=== PATIENT | male | born 1960 | race African-American/Black ===

== ENCOUNTER 2016-10-15 11:48 | Inpatient (IN) | payer OTHER ==
[2016-10-15 13:19] VITALS: BMI 30.4
--- NOTE | 2016-10-15 15:29 | HP ---
CIWA Score - CIWA Score Nausea/Vomitin Muscle Tremors: 3 Anxiety: 3 Agitation: 3 Paroxysmal Sweats: 2 Orientation: 0-Oriented Tacttile Disturbances: 2-Mild Itch/Numbness/Burn Auditory Disturbances: 2-Mild Harshness/Frighten Visual Disturbances: 2-Mild Sensitivity Headache: 2-Mild CIWA-Ar Total Score: 22 Admission ROS BHS - HPI Chief Complaint: i need help to stop drinking alcohol and cocaine Allergies/Adverse Reactions: Allergies Allergy/AdvReac Type Severity Reaction Status Date / Time No Known Allergies Allergy Verified 10/15/16 15:03 History of Present Illness: this 56 years old male with alcohol and cocaine dependence,withdrawal symptom, last detox 01/25/16 to 01/29/16 syncope alcohol related htn,type 2 dm,hypercholesterolemia hiv since 1993 old cva in 2013 nicotine dependence longest period of sobriety 6 years Exam Limitations: No Limitations - Ebola screening Have you traveled outside of the country in the last 21 days: No Have you had contact with anyone from an Ebola affected area: No Have you been sick,other than usual withdrawal symptoms: No - Review of Systems Constitutional: Loss of Appetite, Malaise, Night Sweats, Changes in sleep, Weakness EENT: reports: Nose Congestion Respiratory: reports: No Symptoms reported Cardiac: reports: Palpitations GI: reports: Nausea, Vomiting, Indigestion, Abdominal cramping : reports: No Symptoms Reported Musculoskeletal: reports: Back Pain, Muscle Pain Integumentary: reports: Dryness Neuro: reports: Tremors Endocrine: reports: No Symptoms Reported Hematology: reports: No Symptoms Reported (hiv) Psychiatric: reports: Depressed Patient History - Patient Medical History Hx Anemia: No Hx Asthma: No Hx Chronic Obstructive Pulmonary Disease (COPD): No Hx Cancer: No Hx Cardiac Disorders: No Hx Congestive Heart Failure: No Hx Hypertension: Yes (ON MEDS.) Hx Hypercholesterolemia: Yes (on meds) Hx Pacemaker: No HX Cerebrovascular Accident: No Hx Seizures: No Hx Dementia: No Hx Diabetes: Yes (ON METFORMIN) Hx Gastrointestinal Disorders: No Hx Liver Disease: No Hx Genitourinary Disorders: No Hx Sexually Transmitted Disorders: No Hx Renal Disease (ESRD): No Hx Thyroid Disease: No Hx Human Immunodeficiency Virus (HIV): Yes (since 1993, on atripla) Hx Hepatitis C: No Hx Depression: Yes (NO CURRENT MEDS) Hx Suicide Attempt: No (DENIES) Hx Bipolar Disorder: No Hx Schizophrenia: No Other Medical History: no suicidal,no homicidal - Patient Surgical History Past Surgical History: No Hx Neurologic Surgery: No Hx Cataract Extraction: No Hx Cardiac Surgery: No Hx Lung Surgery: No Hx Breast Surgery: No Hx Breast Biopsy: No Hx Abdominal Surgery: No Hx Appendectomy: No Hx Cholecystectomy: No Hx Genitourinary Surgery: No Hx Section: No Hx Orthopedic Surgery: No Anesthesia Reaction: No - PPD History Previous Implant?: Yes Documented Results: Negative w/o proof Date: 07/26/15 Results: 0 MM PPD to be Administered?: Yes - Smoking Cessation Smoking history: Current every day smoker Have you smoked in the past 12 months: Yes Aproximately how many cigarettes per day: 40 Cigars Per Day: 0 Hx Chewing Tobacco Use: No Initiated information on smoking cessation: Yes 'Breaking Loose' booklet given: 10/15/16 - Substance & Tx. History Hx Alcohol Use: Yes Hx Substance Use: Yes Substance Use Type: Alcohol, Cocaine Hx Substance Use Treatment: Yes ([facility] 01/25/16 to 01/29/16) Family Disease History - Family Disease History Family Disease History: Other: Father (dsa,), Mother (alcoholic, ), Brother (alcohol) Admission Physical Exam S - Vital Signs Vital Signs: Vital Signs - 24 hr 10/15/16 13:00 Temperature 97 F L Pulse Rate 108 H Respiratory 18 Rate Blood Pressure 119/79 - Physical General Appearance: Yes: Moderate Distress, Tremorous, Irritable, Sweating, Anxious HEENTM: Yes: Normal ENT Inspection, Pharynx Normal, Nasal Congestion, Rhinorrhea Respiratory: Yes: Lungs Clear, Normal Breath Sounds, No Respiratory Distress Neck: Yes: Within Normal Limits, Supple, Trachea in good position Breast: Yes: Within Normal Limits Cardiology: Yes: Tachycardia Abdominal: Yes: Within Normal Limits, Normal Bowel Sounds, Non Tender, Flat, Soft Genitourinary: Yes: Within Normal Limits Back: Yes: Muscle Spasm Musculoskeletal: Yes: Back pain, Muscle Pain Extremities: Yes: Within Normal Limits, Normal Range of Motion, Tremors Neurological: Yes: infection control rn II-XII NML intact, Fully Oriented, Alert, Motor Strength 5/5 Integumentary: Yes: Dry Lymphatic: Yes: Within Normal Limits - Diagnostic (1) Alcohol dependence with uncomplicated withdrawal Current Visit: No Status: Acute (2) Cocaine dependence Current Visit: No Status: Acute Qualifiers: Substance use status: uncomplicated Qualified Code(s): F14.20 - Cocaine dependence, uncomplicated (3) Nicotine dependence Current Visit: No Status: Acute Qualifiers: Nicotine product type: cigarettes Substance use status: uncomplicated Qualified Code(s): F17.210 - Nicotine dependence, cigarettes, uncomplicated (4) Weight decreased Current Visit: No Status: Acute (5) Acquired immune deficiency syndrome (AIDS) Current Visit: No Status: Chronic (6) DM (diabetes mellitus), type 2 Current Visit: No Status: Chronic Qualifiers: Diabetes mellitus complication status: without complication Diabetes mellitus retirement insulin use: without retirement use Qualified Code(s): E11.9 - Type 2 diabetes mellitus without complications (7) Depression Current Visit: No Status: Chronic (8) Essential hypertension Current Visit: No Status: Chronic (9) Hypercholesterolemia Current Visit: No Status: Chronic Cleared for Admission S - Detox or Rehab [facility] Level of Care: Medically Managed Detox Regimen/Protocol: Librium [facility] Breath Alcohol Content Breath Alcohol Content: 0.015 Urine Drug Screen - Results Drug Screen Negative: No Urine Drug Screen Results: GABRIELA-Cocaine
[2016-10-15] MEDS ORDERED: MAGNESIUM CITRATE 300 ML BOTTLE PO PRN (15:42)
[2016-10-15] MEDS ORDERED: MAGNESIUM HYDROX 2400MG/30ML ORAL SUSPENSION 30 ML CUP PO PRN (15:42)
[2016-10-15] MEDS ORDERED: MENTHOL/PHENOL 1 EACH UD MM PRN (15:42)
[2016-10-15] MEDS ORDERED: chlordiazePOXIDE HCL 25 MG CAPSULE PO PRN (15:42)
[2016-10-15] MEDS ORDERED: hydrOXYzine PAMOATE 50 MG CAPSULE (FP) PO PRN (15:42)
[2016-10-15] MEDS ORDERED: IBUPROFEN 400 MG TABLET (FP) PO PRN (15:42)
[2016-10-15] MEDS ORDERED: MAG HYDROX/AL HYDROX/SIMETH 30 ML UNIT-DOSE CUP PO PRN (15:42)
[2016-10-15] MEDS ORDERED: LOPERAMIDE HCL 2 MG CAPSULE PO PRN (15:42)
[2016-10-15] MEDS ORDERED: ACETAMINOPHEN 325 MG TABLET (FP) PO PRN (15:42)
[2016-10-15] MEDS ORDERED: P-EPHED 60MG/TRIPROLIDI 2.5MG TABLET PO PRN (15:42)
[2016-10-15] MEDS ORDERED: guaiFENesin/D-METHORPHAN HB 10 ML UNIT-DOSE CUPS PO PRN (15:42)
[2016-10-15] MEDS ORDERED: chlordiazePOXIDE HCL 25 MG CAPSULE PO ONE (17:00)
[2016-10-15] MEDS ORDERED: INSULIN (NOVOLOG) ASPART 100 UNITS/ML 10ML VIAL ONE (17:39)
[2016-10-15] MEDS: metFORMIN HCL 500 MG TABLET (FP) PO SCH (17:48)
[2016-10-15] MEDS: INSULIN (NOVOLOG) ASPART 100 UNITS/ML 10ML VIAL SQ SCH ×2 (17:49→22:13)
[2016-10-15] MEDS: chlordiazePOXIDE HCL 25 MG CAPSULE PO SCH ×2 (17:55→22:11)
[2016-10-15] MEDS: ATORVASTATIN CA 40 MG TABLET (FP) PO SCH (22:11)
[2016-10-15] MEDS: THIAMINE HCL 100 MG TABLET (FP) PO SCH (22:11)
[2016-10-15] MEDS: EFAVIRENZ 600 MG TABLET PO SCH (22:11)
[2016-10-15] MEDS: diphenhydrAMINE HCL 50 MG CAPSULE PO PRN (22:11)
[2016-10-15] MEDS: EMTRICITABINE 200MG/TENOFOVIR 300MG PO SCH (22:11)
[2016-10-16] MEDS: chlordiazePOXIDE HCL 25 MG CAPSULE PO SCH ×4 (05:18→22:22)
[2016-10-16] MEDS: metFORMIN HCL 500 MG TABLET (FP) PO SCH ×2 (07:23→17:25)
[2016-10-16] MEDS: INSULIN (NOVOLOG) ASPART 100 UNITS/ML 10ML VIAL SQ SCH ×4 (07:53→21:50)
[2016-10-16] MEDS: PRENATAL VITAMINS W/ FOLIC ACID TABLET (FP) PO SCH (10:08)
[2016-10-16] MEDS: ASPIRIN 81 MG CHEWABLE TABLETS PO SCH (10:08)
[2016-10-16] MEDS: HYDROCHLOROTHIAZIDE 25 MG TABLET (FP) PO SCH (10:09)
[2016-10-16] MEDS: LISINOPRIL 20 MG TABLET (FP) PO SCH (10:10)
[2016-10-16 10:13] LABS: MCH 28.3 pg (25.7-33.7); MCHC 32.4 g/dl (32.0-35.9); MEAN CELL VOLUME 87.1 fl (80-96); MEAN PLT VOLUME 9.7 fl (7.5-11.1); PLATELET COUNT 262 K/MM3 (134-434); RDW 13.2 % (11.9-15.9); WHITE BLOOD COUNT 7.1 K/mm3 (4.0-10.0)
--- NOTE | 2016-10-16 10:20 | PN ---
S CIWA - CIWA Score Nausea/Vomitin-No Nausea/No Vomiting Muscle Tremors: 4-Moderate,w/Arms Extend Anxiety: 4-Mod. Anxious/Guarded Agitation: 3 Paroxysmal Sweats: 3 Orientation: 0-Oriented Tacttile Disturbances: 0-None Auditory Disturbances: 0-None Visual Disturbances: 0-None Headache: 0-None Present CIWA-Ar Total Score: 14 BHS Progress Note (SOAP) Subjective: sweats agitation interrupted sleep Objective: 10/16/16 10:19 Vital Signs Temperature 98.1 F 10/16/16 06:46 Pulse Rate 73 10/16/16 06:46 Respiratory Rate 18 10/16/16 06:46 Blood Pressure 110/74 10/16/16 06:46 O2 Sat by Pulse Oximetry (%) Laboratory Tests 10/15/16 10/15/16 10/15/16 15:26 17:35 22:07 POC Glucometer 304 263 143 10/16/16 07:15 POC Glucometer 136 pending labs awake/alert ambulating no acute distress Assessment: 10/16/16 10:20 withdrawal sx Plan: continue detox increase fluids labs pending
[2016-10-16 10:33] LABS: ALBUMIN 4.1 g/dl (3.4-5.0); CALCIUM 9.2 mg/dL (8.5-10.1); CREATININE 1.5 mg/dL (0.7-1.3)
[2016-10-16 10:36] LABS: BILIRUBIN,TOTAL 0.3 mg/dL (0.2-1.0); TOT PROT 8.2 g/dl (6.4-8.2)
[2016-10-16] MEDS ORDERED: INSULIN (NOVOLOG) ASPART 100 UNITS/ML 10ML VIAL ONE ×2 (11:42→21:50)
--- NOTE | 2016-10-16 15:15 | CONSULT ---
[facility] Psychiatric Consult - Data Date of interview: 10/16/16 Admission source: [facility] Identifying data: Another admission to [facility] for this 56 y/o AA male seeking detox treatment on for alcohol and cocaine dependence.Patient is ,a father of two,domiciled (lives with ),unemployed and supported on SSI benefits. Substance Abuse History: - Smoking Cessation. Smoking history: Current every day smoker. Have you smoked in the past 12 months: Yes. Aproximately how many cigarettes per day: 40. Cigars Per Day: 0. Hx Chewing Tobacco Use: No. Initiated information on smoking cessation: Yes. 'Breaking Loose' booklet given : 10/15/16. - Substance & Tx. History. Hx Alcohol Use: Yes. Hx Substance Use : Yes. Substance Use Type: Alcohol, Cocaine. Hx Substance Use Treatment: Yes ( [facility] 01/25/16 to 01/29/16). Confirmed by patient. Medical History: HIV infection since 1990 (on ART agents),obesity,diabetes mellitus type II,hypertension and dyslipidemia. Psychiatric History: Patient denies. Physical/Sexual Abuse/Trauma History: Patient denies. Additional Comment: Urine Drug Screen Results: GABRIELA-Cocaine.Noted. Mental Status Exam - Mental Status Exam Alert and Oriented to: Time, Place, Person Cognitive Function: Grossly Intact Patient Appearance: Well Groomed Mood: Withdrawn Affect: Appropriate, Normal Range Patient Behavior: Fatigued, Cooperative Speech Pattern: Clear Voice Loudness: Normal Thought Process: Goal Oriented Thought Disorder: Not Present Hallucinations: Denies Suicidal Ideation: Denies Homicidal Ideation: Denies Insight/Judgement: Poor Sleep: Poorly, Difficulty falling asleep Appetite: Good Muscle strength/Tone: Normal Gait/Station: Normal Psychiatric Findings - Problem List ([place] 1, 2,3) (1) Alcohol dependence with uncomplicated withdrawal Current Visit: Yes Status: Acute (2) Cocaine dependence Current Visit: Yes Status: Acute Qualifiers: Substance use status: uncomplicated Qualified Code(s): F14.20 - Cocaine dependence, uncomplicated (3) Nicotine dependence Current Visit: Yes Status: Acute Qualifiers: Nicotine product type: cigarettes Substance use status: uncomplicated Qualified Code(s): F17.210 - Nicotine dependence, cigarettes, uncomplicated (4) Weight decreased Current Visit: Yes Status: Chronic (5) Acquired immune deficiency syndrome (AIDS) Current Visit: Yes Status: Chronic (6) DM (diabetes mellitus), type 2 Current Visit: Yes Status: Chronic Qualifiers: Diabetes mellitus complication status: without complication Diabetes mellitus group home insulin use: without group home use Qualified Code(s): E11.9 - Type 2 diabetes mellitus without complications (7) Essential hypertension Current Visit: Yes Status: Chronic (8) Hypercholesterolemia Current Visit: Yes Status: Chronic (9) Insomnia Current Visit: Yes Status: Acute - Initial Treatment Plan Initial Treatment Plan: Psychoeducation.Detoxification.Insomnia is addressed with benadryl 50 mg po hs.Side effects/benedryl discussed.Patient agrees with careplan.Observation.
[2016-10-16 15:24] LABS: URINE APPEARANCE CLEAR; URINE BILIRUBIN NEGATIVE (NEGATIVE); URINE BLOOD NEGATIVE (NEGATIVE); URINE COLOR LTYELLOW; URINE GLUCOSE (UA) 3+ (NEGATIVE); URINE KETONE NEGATIVE (NEGATIVE); URINE LEUK ESTERASE NEGATIVE (NEGATIVE); URINE NITRITE NEGATIVE (NEGATIVE); URINE PROTEIN NEGATIVE (NEGATIVE); URINE UROBILINOGEN NEGATIVE E.U./dl (0.2-1.0)
[2016-10-16] MEDS: diphenhydrAMINE HCL 50 MG CAPSULE PO PRN (22:22)
[2016-10-16] MEDS: EFAVIRENZ 600 MG TABLET PO SCH (22:23)
[2016-10-16] MEDS: ATORVASTATIN CA 40 MG TABLET (FP) PO SCH (22:23)
[2016-10-16] MEDS: THIAMINE HCL 100 MG TABLET (FP) PO SCH (22:23)
[2016-10-16] MEDS: EMTRICITABINE 200MG/TENOFOVIR 300MG PO SCH (22:23)
[2016-10-17] MEDS: metFORMIN HCL 500 MG TABLET (FP) PO SCH ×3 (07:43→17:09)
[2016-10-17] MEDS: chlordiazePOXIDE HCL 25 MG CAPSULE PO SCH ×2 (07:43→11:15)
[2016-10-17] MEDS: INSULIN (NOVOLOG) ASPART 100 UNITS/ML 10ML VIAL SQ SCH ×4 (07:52→22:36)
--- NOTE | 2016-10-17 09:03 | PN ---
[facility] CIWA - CIWA Score Nausea/Vomitin-No Nausea/No Vomiting Muscle Tremors: 3 Anxiety: 3 Agitation: 3 Paroxysmal Sweats: 2 Orientation: 0-Oriented Tacttile Disturbances: 0-None Auditory Disturbances: 0-None Visual Disturbances: 0-None Headache: 0-None Present CIWA-Ar Total Score: 11 S Progress Note (SOAP) Subjective: sweats interrupted sleep agitation Objective: 10/17/16 09:02 Vital Signs Temperature 97.7 F 10/17/16 06:00 Pulse Rate 81 10/17/16 06:00 Respiratory Rate 18 10/17/16 06:00 Blood Pressure 97/55 10/17/16 06:00 O2 Sat by Pulse Oximetry (%) Laboratory Tests 10/15/16 10/15/16 10/15/16 15:26 17:35 22:07 WBC RBC Hgb Hct MCV MCHC RDW Plt Count MPV Sodium Potassium Chloride Carbon Dioxide Anion Gap BUN Creatinine Creat Clearance w eGFR POC Glucometer 304 263 143 Random Glucose Calcium Total Bilirubin AST ALT Alkaline Phosphatase Total Protein Albumin Urine Color Urine Appearance Urine pH Ur Specific [place] Urine Protein Urine Glucose (UA) Urine Ketones Urine Blood Urine Nitrite Urine Bilirubin Urine Urobilinogen Ur Leukocyte Esterase RPR Titer 10/16/16 10/16/16 10/16/16 06:00 06:00 06:00 WBC 7.1 RBC 5.61 H Hgb 15.9 Hct 48.9 MCV 87.1 MCHC 32.4 RDW 13.2 Plt Count 262 MPV 9.7 Sodium 137 Potassium 4.1 Chloride 98 Carbon Dioxide 24 Anion Gap 15 BUN 18 D Creatinine 1.5 H Creat Clearance w eGFR 48.77 POC Glucometer Random Glucose 326 H* Calcium 9.2 Total Bilirubin 0.3 D AST 12 L D ALT 25 Alkaline Phosphatase 118 H Total Protein 8.2 Albumin 4.1 Urine Color Urine Appearance Urine pH Ur Specific [place] Urine Protein Urine Glucose (UA) Urine Ketones Urine Blood Urine Nitrite Urine Bilirubin Urine Urobilinogen Ur Leukocyte Esterase RPR Titer Nonreactive 10/16/16 10/16/16 10/16/16 07:15 11:20 11:33 WBC RBC Hgb Hct MCV MCHC RDW Plt Count MPV Sodium Potassium Chloride Carbon Dioxide Anion Gap BUN Creatinine Creat Clearance w eGFR POC Glucometer 136 231 Random Glucose Calcium Total Bilirubin AST ALT Alkaline Phosphatase Total Protein Albumin Urine Color Ltyellow Urine Appearance Clear Urine pH 6.0 Ur Specific [place] 1.012 Urine Protein Negative Urine Glucose (UA) 3+ H Urine Ketones Negative Urine Blood Negative Urine Nitrite Negative Urine Bilirubin Negative Urine Urobilinogen Negative Ur Leukocyte Esterase Negative RPR Titer 10/16/16 10/16/16 10/17/16 16:49 21:30 07:38 WBC RBC Hgb Hct MCV MCHC RDW Plt Count MPV Sodium Potassium Chloride Carbon Dioxide Anion Gap BUN Creatinine Creat Clearance w eGFR POC Glucometer 120 237 137 Random Glucose Calcium Total Bilirubin AST ALT Alkaline Phosphatase Total Protein Albumin Urine Color Urine Appearance Urine pH Ur Specific [place] Urine Protein Urine Glucose (UA) Urine Ketones Urine Blood Urine Nitrite Urine Bilirubin Urine Urobilinogen Ur Leukocyte Esterase RPR Titer awake/alert ambulating no acute distress Assessment: 10/17/16 09:02 withdrawal sx Plan: continue detox increase fluids
[2016-10-17] MEDS ORDERED: ASPIRIN COATED 81 MG TABLET.EC ONE (09:54)
[2016-10-17] MEDS: PRENATAL VITAMINS W/ FOLIC ACID TABLET (FP) PO SCH (11:15)
[2016-10-17] MEDS: HYDROCHLOROTHIAZIDE 25 MG TABLET (FP) PO SCH (11:15)
[2016-10-17] MEDS: LISINOPRIL 20 MG TABLET (FP) PO SCH (11:15)
[2016-10-17] MEDS: ASPIRIN 81 MG CHEWABLE TABLETS PO SCH (11:17)
[2016-10-17] MEDS ORDERED: INSULIN (NOVOLOG) ASPART 100 UNITS/ML 10ML VIAL ONE ×2 (11:37→16:54)
--- NOTE | 2016-10-17 11:58 | EKG ---
Test Reason : Blood Pressure : / mmHG Vent. Rate : 092 BPM Atrial Rate : 092 BPM P-R Int : 146 ms QRS Dur : 090 ms QT Int : 378 ms P-R-T Axes : 031 -53 022 degrees QTc Int : 467 ms NORMAL SINUS RHYTHM LEFT ANTERIOR FASCICULAR BLOCK SEPTAL INFARCT , AGE UNDETERMINED ABNORMAL ECG NO PREVIOUS ECGS AVAILABLE Confirmed by GERMAN HERNÁNDEZ MD ([id number]) on 10/17/2016 11:58:24 AM Referred By: Confirmed By:GERMAN HERNÁNDEZ MD
[2016-10-17] MEDS: chlordiazePOXIDE 5 MG CAPSULE PO SCH ×2 (17:09→23:00)
[2016-10-17] MEDS: diphenhydrAMINE HCL 50 MG CAPSULE PO PRN (23:00)
[2016-10-17] MEDS: THIAMINE HCL 100 MG TABLET (FP) PO SCH (23:00)
[2016-10-17] MEDS: EFAVIRENZ 600 MG TABLET PO SCH (23:00)
[2016-10-17] MEDS: ATORVASTATIN CA 40 MG TABLET (FP) PO SCH (23:00)
[2016-10-17] MEDS: EMTRICITABINE 200MG/TENOFOVIR 300MG PO SCH (23:02)
[2016-10-18] MEDS: chlordiazePOXIDE 5 MG CAPSULE PO SCH ×2 (05:31→10:07)
[2016-10-18] MEDS: INSULIN (NOVOLOG) ASPART 100 UNITS/ML 10ML VIAL SQ SCH ×3 (07:52→18:04)
[2016-10-18] MEDS: metFORMIN HCL 500 MG TABLET (FP) PO SCH ×2 (07:53→18:04)
[2016-10-18] MEDS: ASPIRIN 81 MG CHEWABLE TABLETS PO SCH (10:08)
[2016-10-18] MEDS: LISINOPRIL 20 MG TABLET (FP) PO SCH (10:08)
[2016-10-18] MEDS: PRENATAL VITAMINS W/ FOLIC ACID TABLET (FP) PO SCH (10:08)
[2016-10-18] MEDS: HYDROCHLOROTHIAZIDE 25 MG TABLET (FP) PO SCH (10:08)
--- NOTE | 2016-10-18 11:58 | PN ---
S Progress Note (SOAP) Subjective: ALERT,IRRITABLE,INTERRUPTED SLEEP Objective: 10/18/16 11:57 Vital Signs Temperature 98.2 F 10/18/16 09:58 Pulse Rate 90 10/18/16 09:58 Respiratory Rate 18 10/18/16 09:58 Blood Pressure 109/79 10/18/16 09:58 O2 Sat by Pulse Oximetry (%) BGM 142 Assessment: 10/18/16 11:57 WITHDRAWAL SYMPTOM Plan: CONTINUE DETOX,DISCHARGE IN AM
[2016-10-18] MEDS ORDERED: INSULIN (NOVOLOG) ASPART 100 UNITS/ML 10ML VIAL ONE (12:16)
[2016-10-18] MEDS: chlordiazePOXIDE HCL 10 MG CAPSULE PO SCH ×2 (18:05→22:07)
[2016-10-18] MEDS: THIAMINE HCL 100 MG TABLET (FP) PO SCH (22:07)
[2016-10-18] MEDS: EFAVIRENZ 600 MG TABLET PO SCH (22:08)
[2016-10-18] MEDS: ATORVASTATIN CA 40 MG TABLET (FP) PO SCH (22:08)
[2016-10-18] MEDS: diphenhydrAMINE HCL 50 MG CAPSULE PO PRN (22:08)
[2016-10-19] MEDS: INSULIN (NOVOLOG) ASPART 100 UNITS/ML 10ML VIAL SQ SCH ×2 (00:04→08:12)
[2016-10-19] MEDS: EMTRICITABINE 200MG/TENOFOVIR 300MG PO SCH (00:05)
[2016-10-19] MEDS: chlordiazePOXIDE HCL 10 MG CAPSULE PO SCH (05:04)
[2016-10-19 06:08] VITALS: BP 99/74; PULSE 105; TEMP 96.8
--- NOTE | 2016-10-19 08:06 | PN ---
S Progress Note (SOAP) Subjective: ALERT,NO COMPLAINT Objective: 10/19/16 08:05 Vital Signs Temperature 96.8 F L 10/19/16 06:06 Pulse Rate 105 H 10/19/16 06:06 Respiratory Rate 20 10/19/16 06:06 Blood Pressure 99/74 10/19/16 06:06 O2 Sat by Pulse Oximetry (%) Assessment: 10/19/16 08:05 DETOX COMPLETED,NO WITHDRAWAL SYMPTOM Plan: DISCHARGE TO,FOLLOW UP WITH AFTER CARE PROGRAM ARRANGEMENT
[2016-10-19] MEDS: metFORMIN HCL 500 MG TABLET (FP) PO SCH (08:12)
--- NOTE | 2016-10-19 08:15 | DS ---
[facility] Detox Discharge Summary Admission Date: 10/15/16 Discharge Date: 10/19/16 - History Present History: Alcohol Dependence, Cocaine Dependence Pertinent Past History: AIDS ESSENTIAL HYPERTENSION HYPERCHOLESTEROLEMIA WEIGHT DECREASED DEPRESSION TYPE 2 DM - Physical Exam Results Vital Signs: Vital Signs Temperature 96.8 F L 10/19/16 06:06 Pulse Rate 105 H 10/19/16 06:06 Respiratory Rate 20 10/19/16 06:06 Blood Pressure 99/74 10/19/16 06:06 O2 Sat by Pulse Oximetry (%) Pertinent Admission Physical Exam Findings: FOLLOW UP WITH AFTER CARE PROGRAM ARRANGEMENT AND PMD FOR MEDICAL PROBLEM - Treatment Hospital Course: Detox Protocol Followed, Detoxed Safely, Responded well, Discharged Condition Good Patient has Accepted a Rehab Referral to: DECLINED - Medication Discharge Medications: Ambulatory Orders Aspirin [ASA -] 81 mg PO DAILY 12/17/13 Atorvastatin Calcium 40 mg PO HS 12/17/13 Efavirenz/Emtricitab/Tenofovir [Atripla Tablet -] 1 tab PO DAILY #30 tab Metformin HCl [Glucophage] 1,000 mg PO BID #60 tablet 07/29/15 Lisinopril/Hydrochlorothiazide [Lisinopril-Hctz 20-25 mg Tab] 1 each PO DAILY - Diagnosis (1) Alcohol dependence with uncomplicated withdrawal Current Visit: Yes Status: Acute (2) Cocaine dependence Current Visit: Yes Status: Acute Qualifiers: Substance use status: uncomplicated Qualified Code(s): F14.20 - Cocaine dependence, uncomplicated (3) Nicotine dependence Current Visit: Yes Status: Acute Qualifiers: Nicotine product type: cigarettes Substance use status: uncomplicated Qualified Code(s): F17.210 - Nicotine dependence, cigarettes, uncomplicated (4) Weight decreased Current Visit: Yes Status: Chronic (5) Acquired immune deficiency syndrome (AIDS) Current Visit: Yes Status: Chronic (6) DM (diabetes mellitus), type 2 Current Visit: Yes Status: Chronic Qualifiers: Diabetes mellitus complication status: without complication Diabetes mellitus prison insulin use: without music grapher use Qualified Code(s): E11.9 - Type 2 diabetes mellitus without complications (7) Depression Current Visit: No Status: Chronic (8) Essential hypertension Current Visit: Yes Status: Chronic (9) Hypercholesterolemia Current Visit: Yes Status: Chronic - AMA Did Patient Leave Against Medical Advice: No
--- NOTE | 2016-10-19 08:23 | PN ---
S Progress Note (SOAP) Subjective: ALERT,NO COMPLAINT Objective: 10/19/16 08:22 Vital Signs Temperature 96.8 F L 10/19/16 06:06 Pulse Rate 105 H 10/19/16 06:06 Respiratory Rate 20 10/19/16 06:06 Blood Pressure 99/74 10/19/16 06:06 O2 Sat by Pulse Oximetry (%) Assessment: 10/19/16 08:22 DETOX COMPLETED,NO WITHDRAWAL SYMPTOM Plan: DISCHARGE TODAY,FOLLOW UP WITH AFTER CARE PROGRAM ARRANGEMENT
--- NOTE | 2016-10-19 08:25 | PN ---
S Progress Note Note: PLEASE DISREGARD THE NOTE ON 03.10,BELONGS TO OTHER PATIENT
== END 2016-10-19 09:28 | disposition home or self-care (01) | DRG 897 ==
LOC: YASAS 11:48 → Y6N 15:53
PROVIDERS: ADMIT Internal Medicine Addiction Medicine; ATTEND Internal Medicine Addiction Medicine
PROC: HZ2ZZZZ Detoxification Services for Substance Abuse Treatment (ICD-10-PCS; principal; 2016-10-15)
DX: F19.230 Other psychoactive substance dependence with withdrawal, uncomplicated (principal); F14.20 Cocaine dependence, uncomplicated; F10.230 Alcohol dependence with withdrawal, uncomplicated; F17.210 Nicotine dependence, cigarettes, uncomplicated; F32.9 Major depressive disorder, single episode, unspecified; E11.9 Type 2 diabetes mellitus without complications; E78.00 Pure hypercholesterolemia, unspecified; E66.9 Obesity, unspecified; Z68.30 Body mass index [BMI] 30.0-30.9, adult; I10 Essential (primary) hypertension; R00.0 Tachycardia, unspecified; G47.00 Insomnia, unspecified; Z87.898 Personal history of other specified conditions; Z86.73 Personal history of transient ischemic attack (TIA), and cerebral infarction without residual deficits
CPT/HCPCS: 36415; 80053; 81003; 85027; 86593; 93005; 93010

== ENCOUNTER 2017-03-14 09:54 | Inpatient (IN) | payer OTHER ==
[2017-03-14 10:06] VITALS: BMI 29.5
--- NOTE | 2017-03-14 10:48 | HP ---
CIWA Score - CIWA Score Nausea/Vomitin Muscle Tremors: 2 Anxiety: 1-Mildly Anxious Agitation: 1-Slight > Activity Paroxysmal Sweats: 1-Minimal Palms Moist Orientation: 1-Uncertain about Date Tacttile Disturbances: 1-Very Mild Itch/Numbness Auditory Disturbances: 2-Mild Harshness/Frighten Visual Disturbances: 2-Mild Sensitivity Headache: 2-Mild CIWA-Ar Total Score: 15 Admission ROS BHS - HPI Chief Complaint: I'm tired, I need to stop using Allergies/Adverse Reactions: Allergies Allergy/AdvReac Type Severity Reaction Status Date / Time No Known Allergies Allergy Verified 03/14/17 10:30 History of Present Illness: 56 yo gentleman here for detox from alcohol - previously here in september, Exam Limitations: Clinical Condition - Ebola screening Have you traveled outside of the country in the last 21 days: No Have you had contact with anyone from an Ebola affected area: No Have you been sick,other than usual withdrawal symptoms: No Do you have a fever: No Patient History - Patient Medical History Hx Anemia: No Hx Asthma: No Hx Chronic Obstructive Pulmonary Disease (COPD): No Hx Cancer: No Hx Cardiac Disorders: No Hx Congestive Heart Failure: No Hx Hypertension: Yes (ON MEDS.) Hx Hypercholesterolemia: Yes (on meds) Hx Pacemaker: No HX Cerebrovascular Accident: No Hx Seizures: No Hx Dementia: No Hx Diabetes: Yes (ON METFORMIN) Hx Gastrointestinal Disorders: No Hx Liver Disease: No Hx Genitourinary Disorders: No Hx Sexually Transmitted Disorders: No Hx Renal Disease (ESRD): No Hx Thyroid Disease: No Hx Human Immunodeficiency Virus (HIV): Yes (since 1993,cd4 count in ?500s, undetectable ([place])) Hx Hepatitis C: No Hx Depression: Yes (NO CURRENT MEDS) Hx Suicide Attempt: No (DENIES) Hx Bipolar Disorder: No Hx Schizophrenia: No - Patient Surgical History Past Surgical History: No Hx Neurologic Surgery: No Hx Cataract Extraction: No Hx Cardiac Surgery: No Hx Lung Surgery: No Hx Breast Surgery: No Hx Breast Biopsy: No Hx Abdominal Surgery: No Hx Appendectomy: No Hx Cholecystectomy: No Hx Genitourinary Surgery: No Hx Section: No Hx Orthopedic Surgery: No Anesthesia Reaction: No - PPD History Previous Implant?: Yes Documented Results: Negative w/o proof Date: 10/17/16 Results: 0 MM PPD to be Administered?: No - Reproductive History Patient is a Female of Child Bearing Age (11 -55 yrs old): No (male) - Smoking Cessation Smoking history: Current every day smoker Have you smoked in the past 12 months: Yes Aproximately how many cigarettes per day: 40 Cigars Per Day: 0 Hx Chewing Tobacco Use: No Initiated information on smoking cessation: Yes 'Breaking Loose' booklet given: 03/14/17 (give on floor) - Substance & Tx. History Hx Alcohol Use: Yes Hx Substance Use: Yes Substance Use Type: Alcohol, Cocaine Hx Substance Use Treatment: Yes (detox, rehab) - Substances Abused Alcohol Route: Oral Frequency: 3-6 times per week Amount used: 1 pint Age of first use: 14 Date of Last Use: 03/13/17 Cocaine Route: Smoking Frequency: 3-6 times per week Amount used: $300 Age of first use: 23 Date of Last Use: 03/13/17 Family Disease History - Family Disease History Family Disease History: [place]: Father (hx drugs,), Mother (alcoholic, ), Other: Father, Mother, Brother (three living, in recovery alcohol), Sister (two living, one in recovery), Son (one son), Daughter (one daughter) Admission Physical Exam S - Vital Signs Vital Signs: Vital Signs - 24 hr 03/14/17 09:58 Temperature 98.3 F Pulse Rate 97 H Respiratory 18 Rate Blood Pressure 150/110 - Physical General Appearance: Yes: Nourished, Appropriately Dressed, Mild Distress HEENTM: Yes: Hearing grossly Normal, Normocephalic, Normal Voice, Pharynx Normal Respiratory: Yes: Normal Breath Sounds, No Respiratory Distress Neck: Yes: No masses,lesions,Nodules, Supple, Trachea in good position Breast: Yes: Breast Exam Deferred Cardiology: Yes: Regular Rhythm, Regular Rate Abdominal: Yes: Soft, Protuberent Genitourinary: Yes: Frequency Back: Yes: Normal Inspection Musculoskeletal: Yes: full range of Motion, Gait Steady Extremities: Yes: Normal Inspection, Normal Range of Motion Neurological: Yes: Fully Oriented, Alert, Motor Strength 5/5, Normal Mood/Affect , Normal Response Integumentary: Yes: Normal Color, Dry, Warm Lymphatic: Yes: Within Normal Limits - Addiitonal Findings: BGM = 302 - Diagnostic (1) Alcohol dependence with uncomplicated withdrawal Current Visit: Yes Status: Chronic (2) Cocaine dependence Current Visit: Yes Status: Chronic Qualifiers: Substance use status: uncomplicated Qualified Code(s): F14.20 - Cocaine dependence, uncomplicated (3) Nicotine dependence Current Visit: Yes Status: Chronic Qualifiers: Nicotine product type: cigarettes Substance use status: uncomplicated Qualified Code(s): F17.210 - Nicotine dependence, cigarettes, uncomplicated (4) DM (diabetes mellitus), type 2 Current Visit: Yes Status: Chronic Qualifiers: Diabetes mellitus complication status: without complication Diabetes mellitus intermediate school teacher insulin use: without intermediate school teacher use Qualified Code(s): E11.9 - Type 2 diabetes mellitus without complications (5) Essential hypertension Current Visit: Yes Status: Chronic (6) Hypercholesterolemia Current Visit: Yes Status: Chronic (7) HIV (human immunodeficiency virus infection) Current Visit: Yes Status: Chronic Cleared for Admission S - Detox or Rehab [facility] Level of Care: Medically Managed Detox Regimen/Protocol: Librium S Breath Alcohol Content Breath Alcohol Content: 0 Urine Drug Screen - Results Drug Screen Negative: No Urine Drug Screen Results: GABRIELA-Cocaine
[2017-03-14] MEDS ORDERED: MENTHOL/PHENOL 1 EACH UD MM PRN (10:50)
[2017-03-14] MEDS ORDERED: LOPERAMIDE HCL 2 MG CAPSULE PO PRN (10:50)
[2017-03-14] MEDS ORDERED: P-EPHED 60MG/TRIPROLIDI 2.5MG TABLET PO PRN (10:50)
[2017-03-14] MEDS ORDERED: guaiFENesin/D-METHORPHAN HB 10 ML UNIT-DOSE CUPS PO PRN (10:50)
[2017-03-14] MEDS ORDERED: MAG HYDROX/AL HYDROX/SIMETH 30 ML UNIT-DOSE CUP PO PRN (10:50)
[2017-03-14] MEDS ORDERED: MAGNESIUM CITRATE 300 ML BOTTLE PO PRN (10:50)
[2017-03-14] MEDS ORDERED: ACETAMINOPHEN 325 MG TABLET (FP) PO PRN (10:50)
[2017-03-14] MEDS ORDERED: hydrOXYzine PAMOATE 25 MG CAPSULE (FP) PO PRN (10:50)
[2017-03-14] MEDS ORDERED: chlordiazePOXIDE HCL 25 MG CAPSULE PO PRN (10:50)
[2017-03-14] MEDS ORDERED: MAGNESIUM HYDROX 2400MG/30ML ORAL SUSPENSION 30 ML CUP PO PRN (10:50)
[2017-03-14] MEDS ORDERED: chlordiazePOXIDE HCL 25 MG CAPSULE PO ONE (11:45)
[2017-03-14] MEDS ORDERED: INSULIN (NOVOLOG) ASPART 100 UNITS/ML 10ML VIAL ONE ×2 (12:34→22:01)
[2017-03-14] MEDS: INSULIN SLIDING SCALE (NOVOLOG) 1 VIAL SQ SCH ×3 (12:36→22:03)
[2017-03-14] MEDS: PATIENT'S OWN MEDICATION (NON-FORMULARY) (Lisinopril/Hydrochlorothiazide [Lisinopril-Hctz PO SCH (15:30)
[2017-03-14] MEDS: ASPIRIN 81 MG CHEWABLE TABLETS PO SCH (15:31)
--- NOTE | 2017-03-14 17:27 | CONSULT ---
[facility] Psychiatric Consult - Data Date of interview: 03/14/17 Admission source: [facility] Identifying data: One of multiple admissions to [facility] for this 56 y/o AA male seeking detox treatment on for alcohol and cocaine dependence.Patient is ,a father of two,domiciled (lives with ), unemployed and supported on SSI benefits. Substance Abuse History: Confirmed by patient in this interview. Smoking Cessation. Smoking history: Current every day smoker. Have you smoked in the past 12 months: Yes. Aproximately how many cigarettes per day: 40. Cigars Per Day: 0. Hx Chewing Tobacco Use: No. Initiated information on smoking cessation : Yes. 'Breaking Loose' booklet given: 03/14/17 (give on floor). - Substance & Tx. History. Hx Alcohol Use: Yes. Hx Substance Use: Yes. Substance Use Type : Alcohol, Cocaine. Hx Substance Use Treatment: Yes (detox, rehab). - Substances Abused. Alcohol. Route: Oral. Frequency: 3-6 times per week. Amount used: 1 pint. Age of first use: 14. Date of Last Use: 03/13/17. Cocaine. Route: Smoking. Frequency: 3-6 times per week. Amount used: $300. Age of first use: 23. Date of Last Use: 03/13/17 Medical History: HIV infection since 1990 (on ART agents),obesity,diabetes mellitus type II,hypertension and dyslipidemia. Psychiatric History: Patient denies. Physical/Sexual Abuse/Trauma History: Patient denies. Additional Comment: Urine Drug Screen Results: GABRIELA-Cocaine.Noted. Mental Status Exam - Mental Status Exam Alert and Oriented to: Time, Place, Person Cognitive Function: Good Mood: Hopeful, Euthymic Affect: Appropriate, Normal Range Patient Behavior: Appropriate, Cooperative Speech Pattern: Clear Voice Loudness: Normal Thought Process: Intact, Goal Oriented Thought Disorder: Not Present Hallucinations: Denies Suicidal Ideation: Denies Homicidal Ideation: Denies Insight/Judgement: Poor Sleep: Poorly, Difficulty falling asleep Appetite: Good Muscle strength/Tone: Normal Gait/Station: Normal Psychiatric Findings - Problem List ([place] 1, 2,3) (1) Alcohol dependence with uncomplicated withdrawal Current Visit: Yes Status: Acute (2) Cocaine dependence Current Visit: Yes Status: Acute Qualifiers: Substance use status: uncomplicated Qualified Code(s): F14.20 - Cocaine dependence, uncomplicated (3) Nicotine dependence Current Visit: Yes Status: Acute Qualifiers: Nicotine product type: cigarettes Substance use status: uncomplicated Qualified Code(s): F17.210 - Nicotine dependence, cigarettes, uncomplicated (4) DM (diabetes mellitus), type 2 Current Visit: Yes Status: Chronic Qualifiers: Diabetes mellitus complication status: without complication 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
[2017-03-14] MEDS: chlordiazePOXIDE HCL 25 MG CAPSULE PO SCH ×2 (18:02→22:03)
[2017-03-14] MEDS: metFORMIN HCL 500 MG TABLET (FP) PO SCH (18:05)
[2017-03-14 18:58] LABS: URINE APPEARANCE CLEAR; URINE BILIRUBIN NEGATIVE (NEGATIVE); URINE BLOOD 2+ (NEGATIVE); URINE COLOR LTYELLOW; URINE GLUCOSE (UA) 3+ (NEGATIVE); URINE KETONE NEGATIVE (NEGATIVE); URINE LEUK ESTERASE NEGATIVE (NEGATIVE); URINE NITRITE NEGATIVE (NEGATIVE); URINE UROBILINOGEN NEGATIVE mg/dL (0.2-1.0)
[2017-03-14 19:02] LABS: URINE PROTEIN 2+ (NEGATIVE)
[2017-03-14 19:06] LABS: URINE HYALINE CAST 4 /lpf; URINE MUCUS RARE; URINE RBC 4 /hpf (0-3); URINE WBC 4 /hpf (3-5)
[2017-03-14] MEDS ORDERED: diphenhydrAMINE HCL 50 MG CAPSULE PO PRN (22:00)
[2017-03-14] MEDS: ZOLPIDEM TARTRATE 5 MG TABLET PO PRN (22:03)
[2017-03-14] MEDS: ATORVASTATIN CA 40 MG TABLET (FP) PO SCH (22:03)
[2017-03-14] MEDS: THIAMINE HCL 100 MG TABLET (FP) PO SCH (22:04)
[2017-03-15] MEDS: chlordiazePOXIDE HCL 25 MG CAPSULE PO SCH ×4 (07:07→22:08)
[2017-03-15] MEDS: INSULIN SLIDING SCALE (NOVOLOG) 1 VIAL SQ SCH ×4 (07:07→22:08)
[2017-03-15] MEDS: metFORMIN HCL 500 MG TABLET (FP) PO SCH ×2 (07:07→17:27)
[2017-03-15 10:02] LABS: MCH 28.4 pg (25.7-33.7); MCHC 32.7 g/dl (32.0-35.9); MEAN CELL VOLUME 86.6 fl (80-96); MEAN PLT VOLUME 9.8 fl (7.5-11.1); PLATELET COUNT 212 K/MM3 (134-434); RDW 12.7 % (11.9-15.9); WHITE BLOOD COUNT 6.4 K/mm3 (4.0-10.0)
[2017-03-15 10:21] LABS: ALBUMIN 4.2 g/dl (3.4-5.0); ALK PHOS 120 U/L (45-117); ANION GAP 9 (8-16); BILIRUBIN,TOTAL 0.8 mg/dL (0.2-1.0); CALCIUM 9.6 mg/dL (8.5-10.1); CO2 26 mmol/L (21-32); CREATININE 1.5 mg/dL (0.7-1.3); GLUCOSE,RANDOM 293 mg/dL (74-106); SGOT/AST 18 U/L (15-37); SGPT/ALT 25 U/L (12-78); TOT PROT 8.1 g/dl (6.4-8.2)
[2017-03-15] MEDS: PATIENT'S OWN MEDICATION (NON-FORMULARY) (Lisinopril/Hydrochlorothiazide [Lisinopril-Hctz PO SCH (11:07)
[2017-03-15] MEDS: PRENATAL VITAMINS W/ FOLIC ACID TABLET (FP) PO SCH (11:07)
[2017-03-15] MEDS: ASPIRIN 81 MG CHEWABLE TABLETS PO SCH (11:07)
[2017-03-15] MEDS ORDERED: INSULIN (NOVOLOG) ASPART 100 UNITS/ML 10ML VIAL ONE ×3 (11:54→22:11)
--- NOTE | 2017-03-15 12:58 | PN ---
S CIWA - CIWA Score Nausea/Vomitin Muscle Tremors: 3 Anxiety: 3 Agitation: 2 Paroxysmal Sweats: 2 Orientation: 0-Oriented Tacttile Disturbances: 1-Very Mild Itch/Numbness Auditory Disturbances: 1-Very Mild Visual Disturbances: 1-Very Mild Sensitivity Headache: 2-Mild CIWA-Ar Total Score: 18 S Progress Note (SOAP) Subjective: ALERT,IRRITABLE,ANXIOUS,INTERRUPTED SLEEP,TREMOR,PAIN IN THE BODY AND BACK Objective: 03/15/17 12:54 Vital Signs Temperature 97.3 F L 03/15/17 10:00 Pulse Rate 86 03/15/17 10:00 Respiratory Rate 18 03/15/17 10:00 Blood Pressure 108/57 03/15/17 10:00 O2 Sat by Pulse Oximetry (%) EKG NSR,INVERTED T IN 3 NO CHEST PAIN,NO SOB,NO DIZZINESS Laboratory Last Values WBC 6.4 K/mm3 (4.0-10.0) 03/15/17 06:05 RBC 5.81 M/mm3 (4.00-5.60) H 03/15/17 06:05 Hgb 16.5 GM/dL (11.7-16.9) 03/15/17 06:05 Hct 50.3 % (35.4-49) H 03/15/17 06:05 MCV 86.6 fl (80-96) 03/15/17 06:05 MCH 28.4 pg (25.7-33.7) 03/15/17 06:05 MCHC 32.7 g/dl (32.0-35.9) 03/15/17 06:05 RDW 12.7 % (11.9-15.9) 03/15/17 06:05 Plt Count 212 K/MM3 (134-434) 03/15/17 06:05 MPV 9.8 fl (7.5-11.1) 03/15/17 06:05 Sodium 135 mmol/L (136-145) L 03/15/17 06:05 Potassium 3.9 mmol/L (3.5-5.1) 03/15/17 06:05 Chloride 100 mmol/L (98-107) 03/15/17 06:05 Carbon Dioxide 26 mmol/L (21-32) 03/15/17 06:05 Anion Gap 9 (8-16) 03/15/17 06:05 BUN 16 mg/dL (7-18) 03/15/17 06:05 Creatinine 1.5 mg/dL (0.7-1.3) H 03/15/17 06:05 Creat Clearance w eGFR 48.77 (>60) 03/15/17 06:05 POC Glucometer 228 UNITS (()) 03/15/17 11:11 Random Glucose 293 mg/dL (74-106) H 03/15/17 06:05 Calcium 9.6 mg/dL (8.5-10.1) 03/15/17 06:05 Total Bilirubin 0.8 mg/dL (0.2-1.0) D 03/15/17 06:05 AST 18 U/L (15-37) D 03/15/17 06:05 ALT 25 U/L (12-78) 03/15/17 06:05 Alkaline Phosphatase 120 U/L (45-117) H 03/15/17 06:05 Total Protein 8.1 g/dl (6.4-8.2) 03/15/17 06:05 Albumin 4.2 g/dl (3.4-5.0) 03/15/17 06:05 Urine Color Ltyellow 03/14/17 13:27 Urine Appearance Clear 03/14/17 13:27 Urine pH 6.0 (5.0-8.0) 03/14/17 13:27 Ur Specific [place] 1.015 (1.005-1.025) 03/14/17 13:27 Urine Protein 2+ (NEGATIVE) H 03/14/17 13:27 Urine Glucose (UA) 3+ (NEGATIVE) H 03/14/17 13:27 Urine Ketones Negative (NEGATIVE) 03/14/17 13:27 Urine Blood 2+ (NEGATIVE) H 03/14/17 13:27 Urine Nitrite Negative (NEGATIVE) 03/14/17 13:27 Urine Bilirubin Negative (NEGATIVE) 03/14/17 13:27 Urine Urobilinogen Negative mg/dL (0.2-1.0) 03/14/17 13:27 Ur Leukocyte Esterase Negative (NEGATIVE) 03/14/17 13:27 Urine RBC 4 /hpf (0-3) 03/14/17 13:27 Urine WBC 4 /hpf (3-5) 03/14/17 13:27 Ur Epithelial Cells Rare /hpf (FEW) 03/14/17 13:27 Hyaline Casts 4 /lpf 03/14/17 13:27 Urine Mucus Rare 03/14/17 13:27 RPR Titer Nonreactive (NONREACTIVE) 03/15/17 06:05 Assessment: 03/15/17 12:57 WITHDRAWAL SYMPTOM Plan: CONTINUE DETOX
[2017-03-15] MEDS ORDERED: ATORVASTATIN CA 20 MG TABLET (FP) ONE (21:36)
[2017-03-15] MEDS: ZOLPIDEM TARTRATE 5 MG TABLET PO PRN (22:07)
[2017-03-15] MEDS: ATORVASTATIN CA 40 MG TABLET (FP) PO SCH (22:08)
[2017-03-15] MEDS: THIAMINE HCL 100 MG TABLET (FP) PO SCH (22:09)
--- NOTE | 2017-03-15 22:18 | EKG ---
Test Reason : Blood Pressure : / mmHG Vent. Rate : 086 BPM Atrial Rate : 086 BPM P-R Int : 150 ms QRS Dur : 084 ms QT Int : 368 ms P-R-T Axes : 025 -32 -17 degrees QTc Int : 440 ms NORMAL SINUS RHYTHM LEFT AXIS DEVIATION VOLTAGE CRITERIA FOR LEFT VENTRICULAR HYPERTROPHY CANNOT RULE OUT SEPTAL INFARCT (CITED ON OR BEFORE 15-OCT-2016) ABNORMAL ECG WHEN COMPARED WITH ECG OF 15-OCT-2016 16:44, NO SIGNIFICANT CHANGE WAS FOUND Confirmed by EVANGELISTA TRUJILLO MD ([id number]) on 03/15/2017 10:18:20 PM Referred By: Confirmed By:EVANGELISTA TRUJILLO MD
[2017-03-16] MEDS: chlordiazePOXIDE HCL 25 MG CAPSULE PO SCH ×2 (05:35→10:08)
[2017-03-16] MEDS: metFORMIN HCL 500 MG TABLET (FP) PO SCH ×2 (06:14→16:42)
[2017-03-16] MEDS ORDERED: INSULIN (NOVOLOG) ASPART 100 UNITS/ML 10ML VIAL ONE ×3 (07:34→21:53)
[2017-03-16] MEDS: INSULIN SLIDING SCALE (NOVOLOG) 1 VIAL SQ SCH ×4 (07:36→21:53)
[2017-03-16] MEDS: PRENATAL VITAMINS W/ FOLIC ACID TABLET (FP) PO SCH (10:07)
[2017-03-16] MEDS: ASPIRIN 81 MG CHEWABLE TABLETS PO SCH (10:07)
[2017-03-16] MEDS: PATIENT'S OWN MEDICATION (NON-FORMULARY) (Lisinopril/Hydrochlorothiazide [Lisinopril-Hctz PO SCH (10:08)
--- NOTE | 2017-03-16 11:03 | PN ---
[facility] CIWA - CIWA Score Nausea/Vomitin-No Nausea/No Vomiting Muscle Tremors: 4-Moderate,w/Arms Extend Anxiety: 3 Agitation: 3 Paroxysmal Sweats: 3 Orientation: 0-Oriented Tacttile Disturbances: 0-None Auditory Disturbances: 0-None Visual Disturbances: 0-None Headache: 0-None Present CIWA-Ar Total Score: 13 S Progress Note (SOAP) Subjective: shakes sweats interrupted sleep diarrhea Objective: 03/16/17 10:58 Vital Signs Temperature 97.5 F L 03/16/17 10:00 Pulse Rate 89 03/16/17 10:00 Respiratory Rate 18 03/16/17 10:00 Blood Pressure 108/66 03/16/17 10:00 O2 Sat by Pulse Oximetry (%) Laboratory Tests 03/14/17 03/14/17 03/14/17 10:34 12:32 13:27 WBC RBC Hgb Hct MCV MCH MCHC RDW Plt Count MPV Sodium Potassium Chloride Carbon Dioxide Anion Gap BUN Creatinine Creat Clearance w eGFR POC Glucometer 302 312 Random Glucose Calcium Total Bilirubin AST ALT Alkaline Phosphatase Total Protein Albumin Urine Color Ltyellow Urine Appearance Clear Urine pH 6.0 Ur Specific [place] 1.015 Urine Protein 2+ H Urine Glucose (UA) 3+ H Urine Ketones Negative Urine Blood 2+ H Urine Nitrite Negative Urine Bilirubin Negative Urine Urobilinogen Negative Ur Leukocyte Esterase Negative Urine RBC 4 Urine WBC 4 Ur Epithelial Cells Rare Hyaline Casts 4 Urine Mucus Rare RPR Titer 03/14/17 03/14/17 03/15/17 16:37 21:54 06:05 WBC 6.4 RBC 5.81 H Hgb 16.5 Hct 50.3 H MCV 86.6 MCH 28.4 MCHC 32.7 RDW 12.7 Plt Count 212 MPV 9.8 Sodium Potassium Chloride Carbon Dioxide Anion Gap BUN Creatinine Creat Clearance w eGFR POC Glucometer 93 297 Random Glucose Calcium Total Bilirubin AST ALT Alkaline Phosphatase Total Protein Albumin Urine Color Urine Appearance Urine pH Ur Specific [place] Urine Protein Urine Glucose (UA) Urine Ketones Urine Blood Urine Nitrite Urine Bilirubin Urine Urobilinogen Ur Leukocyte Esterase Urine RBC Urine WBC Ur Epithelial Cells Hyaline Casts Urine Mucus RPR Titer 03/15/17 03/15/17 03/15/17 06:05 06:05 06:59 WBC RBC Hgb Hct MCV MCH MCHC RDW Plt Count MPV Sodium 135 L Potassium 3.9 Chloride 100 Carbon Dioxide 26 Anion Gap 9 BUN 16 Creatinine 1.5 H Creat Clearance w eGFR 48.77 POC Glucometer 121 Random Glucose 293 H Calcium 9.6 Total Bilirubin 0.8 D AST 18 D ALT 25 Alkaline Phosphatase 120 H Total Protein 8.1 Albumin 4.2 Urine Color Urine Appearance Urine pH Ur Specific [place] Urine Protein Urine Glucose (UA) Urine Ketones Urine Blood Urine Nitrite Urine Bilirubin Urine Urobilinogen Ur Leukocyte Esterase Urine RBC Urine WBC Ur Epithelial Cells Hyaline Casts Urine Mucus RPR Titer Nonreactive 03/15/17 03/15/17 03/15/17 11:11 16:29 22:06 WBC RBC Hgb Hct MCV MCH MCHC RDW Plt Count MPV Sodium Potassium Chloride Carbon Dioxide Anion Gap BUN Creatinine Creat Clearance w eGFR POC Glucometer 228 204 223 Random Glucose Calcium Total Bilirubin AST ALT Alkaline Phosphatase Total Protein Albumin Urine Color Urine Appearance Urine pH Ur Specific [place] Urine Protein Urine Glucose (UA) Urine Ketones Urine Blood Urine Nitrite Urine Bilirubin Urine Urobilinogen Ur Leukocyte Esterase Urine RBC Urine WBC Ur Epithelial Cells Hyaline Casts Urine Mucus RPR Titer 03/16/17 05:39 WBC RBC Hgb Hct MCV MCH MCHC RDW Plt Count MPV Sodium Potassium Chloride Carbon Dioxide Anion Gap BUN Creatinine Creat Clearance w eGFR POC Glucometer 204 Random Glucose Calcium Total Bilirubin AST ALT Alkaline Phosphatase Total Protein Albumin Urine Color Urine Appearance Urine pH Ur Specific [place] Urine Protein Urine Glucose (UA) Urine Ketones Urine Blood Urine Nitrite Urine Bilirubin Urine Urobilinogen Ur Leukocyte Esterase Urine RBC Urine WBC Ur Epithelial Cells Hyaline Casts Urine Mucus RPR Titer awake/alert ambulating no acute distress Assessment: 03/16/17 11:04 withdrawal sx Plan: continue detox increase fluids immodium prn
[2017-03-16] MEDS: chlordiazePOXIDE 5 MG CAPSULE PO SCH ×2 (16:42→22:20)
[2017-03-16] MEDS ORDERED: ATORVASTATIN CA 20 MG TABLET (FP) ONE (21:29)
[2017-03-16] MEDS: ATORVASTATIN CA 40 MG TABLET (FP) PO SCH (22:20)
[2017-03-16] MEDS: THIAMINE HCL 100 MG TABLET (FP) PO SCH (22:20)
[2017-03-16] MEDS: ZOLPIDEM TARTRATE 5 MG TABLET PO PRN (22:20)
[2017-03-17] MEDS: chlordiazePOXIDE 5 MG CAPSULE PO SCH ×2 (05:41→10:24)
[2017-03-17] MEDS: metFORMIN HCL 500 MG TABLET (FP) PO SCH ×2 (06:29→17:23)
[2017-03-17] MEDS: INSULIN SLIDING SCALE (NOVOLOG) 1 VIAL SQ SCH ×4 (07:48→21:24)
[2017-03-17] MEDS: ASPIRIN 81 MG CHEWABLE TABLETS PO SCH (10:24)
[2017-03-17] MEDS: PRENATAL VITAMINS W/ FOLIC ACID TABLET (FP) PO SCH (10:24)
[2017-03-17] MEDS: PATIENT'S OWN MEDICATION (NON-FORMULARY) (Lisinopril/Hydrochlorothiazide [Lisinopril-Hctz PO SCH (10:25)
--- NOTE | 2017-03-17 10:44 | PN ---
[facility] Progress Note (SOAP) Subjective: feeling fine anxiety Objective: 03/17/17 10:43 Vital Signs Temperature 97.9 F 03/17/17 10:31 Pulse Rate 89 03/17/17 10:31 Respiratory Rate 18 03/17/17 10:31 Blood Pressure 114/77 03/17/17 10:31 O2 Sat by Pulse Oximetry (%) awake/alert ambulating no acute distress Assessment: 03/17/17 10:43 mild withdrawal sx Plan: continue detox d/c in am
[2017-03-17] MEDS ORDERED: INSULIN (NOVOLOG) ASPART 100 UNITS/ML 10ML VIAL ONE ×3 (11:19→21:08)
[2017-03-17] MEDS: chlordiazePOXIDE HCL 10 MG CAPSULE PO SCH ×2 (17:23→22:16)
[2017-03-17] MEDS ORDERED: ATORVASTATIN CA 20 MG TABLET (FP) ONE (21:09)
[2017-03-17] MEDS: ATORVASTATIN CA 40 MG TABLET (FP) PO SCH (22:16)
[2017-03-17] MEDS: THIAMINE HCL 100 MG TABLET (FP) PO SCH (22:16)
[2017-03-18] MEDS: chlordiazePOXIDE HCL 10 MG CAPSULE PO SCH (05:48)
[2017-03-18] MEDS: metFORMIN HCL 500 MG TABLET (FP) PO SCH (06:46)
[2017-03-18] MEDS: INSULIN SLIDING SCALE (NOVOLOG) 1 VIAL SQ SCH (07:07)
--- NOTE | 2017-03-18 08:56 | DS ---
[facility] Detox Discharge Summary Admission Date: 03/14/17 Discharge Date: 03/18/17 - History Present History: Alcohol Dependence, Cocaine Dependence - Physical Exam Results Vital Signs: Vital Signs Temperature 96.7 F L 03/18/17 06:39 Pulse Rate 73 03/18/17 06:39 Respiratory Rate 18 03/18/17 06:39 Blood Pressure 107/77 03/18/17 06:39 O2 Sat by Pulse Oximetry (%) - Treatment Hospital Course: Detox Protocol Followed, Detoxed Safely, Responded well, Discharged Condition Good, Rehab Referral Accepted - Medication Discharge Medications: Ambulatory Orders Aspirin [ASA -] 81 mg PO DAILY 12/17/13 Atorvastatin Calcium 40 mg PO HS 12/17/13 Metformin HCl [Glucophage] 1,000 mg PO BID #60 tablet 07/29/15 Lisinopril/Hydrochlorothiazide [Lisinopril-Hctz 20-25 mg Tab] 1 each PO DAILY Elviteg/Radha/Emtric/Tenofo Ala [Genvoya Tablet] 1 each PO DAILY 03/14/17 - Diagnosis (1) Alcohol dependence with uncomplicated withdrawal Current Visit: Yes Status: Chronic (2) Cocaine dependence Current Visit: Yes Status: Chronic Qualifiers: Substance use status: uncomplicated Qualified Code(s): F14.20 - Cocaine dependence, uncomplicated (3) Insomnia Current Visit: Yes Status: Acute (4) Nicotine dependence Current Visit: Yes Status: Chronic Qualifiers: Nicotine product type: cigarettes Substance use status: uncomplicated Qualified Code(s): F17.210 - Nicotine dependence, cigarettes, uncomplicated (5) DM (diabetes mellitus), type 2 Current Visit: Yes Status: Chronic Qualifiers: Diabetes mellitus complication status: without complication 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
[2017-03-18] MEDS: PATIENT'S OWN MEDICATION (NON-FORMULARY) (Lisinopril/Hydrochlorothiazide [Lisinopril-Hctz PO SCH (09:20)
[2017-03-18] MEDS: PRENATAL VITAMINS W/ FOLIC ACID TABLET (FP) PO SCH (09:21)
[2017-03-18] MEDS: ASPIRIN 81 MG CHEWABLE TABLETS PO SCH (09:22)
[2017-03-18 10:07] VITALS: BP 108/77; PULSE 91; TEMP 97.3
== END 2017-03-18 09:40 | disposition home or self-care (01) | DRG 897 ==
LOC: YASAS 09:54 → Y6N 10:44
PROVIDERS: ADMIT Internal Medicine Addiction Medicine; ATTEND Internal Medicine Addiction Medicine
PROC: HZ2ZZZZ Detoxification Services for Substance Abuse Treatment (ICD-10-PCS; principal; 2017-03-14)
DX: F10.230 Alcohol dependence with withdrawal, uncomplicated (principal); F14.20 Cocaine dependence, uncomplicated; F17.210 Nicotine dependence, cigarettes, uncomplicated; F41.9 Anxiety disorder, unspecified; F32.9 Major depressive disorder, single episode, unspecified; E11.9 Type 2 diabetes mellitus without complications; E78.00 Pure hypercholesterolemia, unspecified; I10 Essential (primary) hypertension; Z21 Asymptomatic human immunodeficiency virus [HIV] infection status; G47.00 Insomnia, unspecified; E66.9 Obesity, unspecified; Z68.29 Body mass index [BMI] 29.0-29.9, adult; Z79.82 Long term (current) use of aspirin; Z79.84 Long term (current) use of oral hypoglycemic drugs; Z87.898 Personal history of other specified conditions
CPT/HCPCS: 36415; 80053; 81003; 81015; 85027; 86593; 93005; 93010

== ENCOUNTER 2017-12-17 08:21 | Inpatient (IN) | payer OTHER ==
[2017-12-17 09:09] VITALS: BMI 28.6
--- NOTE | 2017-12-17 12:16 | HP ---
CIWA Score - CIWA Score Nausea/Vomitin Muscle Tremors: 3 Anxiety: 3 Agitation: 3 Paroxysmal Sweats: 1-Minimal Palms Moist Orientation: 0-Oriented Tacttile Disturbances: 1-Very Mild Itch/Numbness Auditory Disturbances: 1-Very Mild Visual Disturbances: 0-None Headache: 2-Mild CIWA-Ar Total Score: 17 Admission ROS [facility] - HPI Chief Complaint: i need help to stop drinking alcohol and cocaine Allergies/Adverse Reactions: Allergies Allergy/AdvReac Type Severity Reaction Status Date / Time No Known Allergies Allergy Verified 12/17/17 09:35 History of Present Illness: this 57 years old male with alcohol,cocaine dependence,seeking detox,withdrawal symptom,last detox [facility] 03/14/17 to 03/18/17 hiv since 1993,type 2 dm,hypercholesterolemia, nicotine dependence longest period of sobriety 7 years - Ebola screening Have you traveled outside of the country in the last 21 days: No (N) Have you had contact with anyone from an Ebola affected area: No Have you been sick,other than usual withdrawal symptoms: No Do you have a fever: No - Review of Systems Constitutional: Loss of Appetite, Malaise, Night Sweats, Changes in sleep, Weakness, Unintentional Wgt. Loss EENT: reports: Tearing, Nose Congestion Respiratory: reports: No Symptoms reported Cardiac: reports: No Symptoms Reported GI: reports: Nausea, Poor Appetite, Abdominal cramping : reports: No Symptoms Reported Musculoskeletal: reports: Back Pain, Muscle Pain Integumentary: reports: Dryness Neuro: reports: Headache, Tremors Endocrine: reports: No Symptoms Reported Hematology: reports: No Symptoms Reported (hiv) Psychiatric: reports: No Sypmtoms Reported, Judgement Intact, Mood/Affect Appropiate, Orientated x3 Patient History - Patient Medical History Hx Anemia: No Hx Asthma: No Hx Chronic Obstructive Pulmonary Disease (COPD): No Hx Cancer: No Hx Cardiac Disorders: No Hx Congestive Heart Failure: No Hx Hypertension: Yes (on med) Hx Hypercholesterolemia: Yes (on meds) Hx Pacemaker: No HX Cerebrovascular Accident: No Hx Seizures: No Hx Dementia: No Hx Diabetes: Yes (NIDDM) Hx Gastrointestinal Disorders: No Hx Liver Disease: No Hx Genitourinary Disorders: No Hx Sexually Transmitted Disorders: No Hx Renal Disease (ESRD): No Hx Thyroid Disease: No Hx Human Immunodeficiency Virus (HIV): Yes (since 1993,cd4 count in ?500s, undetectable ([place])) Hx Hepatitis C: No Hx Depression: No Hx Suicide Attempt: No Hx Bipolar Disorder: No Hx Schizophrenia: No Other Medical History: no suicidal,no homicidal - Patient Surgical History Past Surgical History: No Hx Neurologic Surgery: No Hx Cataract Extraction: No Hx Cardiac Surgery: No Hx Lung Surgery: No Hx Breast Surgery: No Hx Breast Biopsy: No Hx Abdominal Surgery: No Hx Appendectomy: No Hx Cholecystectomy: No Hx Genitourinary Surgery: No Hx Section: No Hx Orthopedic Surgery: No Anesthesia Reaction: No - PPD History Previous Implant?: Yes Documented Results: Negative w/proof Implanted On Prior [facility] Admission?: Yes Date: 10/17/16 Results: 0 mm PPD to be Administered?: Yes - Smoking Cessation Smoking history: Current every day smoker Have you smoked in the past 12 months: Yes Aproximately how many cigarettes per day: 7 Cigars Per Day: 0 Hx Chewing Tobacco Use: No Initiated information on smoking cessation: Yes 'Breaking Loose' booklet given: 12/17/17 - Substance & Tx. History Hx Alcohol Use: Yes Hx Substance Use: Yes Substance Use Type: Alcohol, Cocaine Hx Substance Use Treatment: Yes ([facility] 03/14/17 to 03/18/17) - Substances Abused Crack Route: Smoking Frequency: 3-6 times per week Amount used: $200 Age of first use: 25 Date of Last Use: 12/15/17 Alcohol-beer/vodka Route: Oral Frequency: Daily Amount used: 1-2 6 pks./1-3 pts. Age of first use: 14 Date of Last Use: 12/16/17 Family Disease History - Family Disease History Family Disease History: [place]: Father (hx drugs,), Mother (alcoholic, ), Other: Father, Mother, Brother (three living, in recovery alcohol), Sister (two living, one in recovery), Son (one son), Daughter (one daughter) Admission Physical Exam S - Vital Signs Vital Signs: Vital Signs - 24 hr 12/17/17 09:01 Temperature 98.1 F Pulse Rate 76 Respiratory 20 Rate Blood Pressure 141/99 - Physical General Appearance: Yes: Moderate Distress, Tremorous, Irritable, Sweating, Anxious HEENTM: Yes: Normal ENT Inspection, Pharynx Normal Respiratory: Yes: Lungs Clear, Normal Breath Sounds, No Respiratory Distress Neck: Yes: Within Normal Limits, Supple, Trachea in good position Breast: Yes: Within Normal Limits Cardiology: Yes: Within Normal Limits, Regular Rhythm, Regular Rate, S1, S2 Abdominal: Yes: Within Normal Limits, Normal Bowel Sounds, Non Tender, Soft Genitourinary: Yes: Within Normal Limits Back: Yes: Muscle Spasm Musculoskeletal: Yes: Back pain, Muscle Pain Extremities: Yes: Within Normal Limits, Normal Range of Motion, Tremors 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 intact, Fully Oriented, Alert, Motor Strength 5/5 Integumentary: Yes: Dry Lymphatic: Yes: Within Normal Limits - Diagnostic (1) Alcohol dependence with uncomplicated withdrawal Current Visit: No Status: Chronic (2) Insomnia Current Visit: No Status: Acute (3) Anxiety Current Visit: No Status: Chronic (4) Cocaine dependence Current Visit: No Status: Chronic Qualifiers: Substance use status: uncomplicated Qualified Code(s): F14.20 - Cocaine dependence, uncomplicated (5) DM (diabetes mellitus), type 2 Current Visit: No Status: Chronic Qualifiers: 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 use Diabetes mellitus complication status: without complication Qualified Code(s): E11.9 - Type 2 diabetes mellitus without complications (6) Essential hypertension Current Visit: No Status: Chronic (7) HIV (human immunodeficiency virus infection) Current Visit: No Status: Chronic (8) Hypercholesterolemia Current Visit: No Status: Chronic Cleared for Admission [facility] - Detox or Rehab [facility] Level of Care: Medically Managed Detox Regimen/Protocol: Librium [facility] Breath Alcohol Content Breath Alcohol Content: 0 Urine Drug Screen - Results Drug Screen Negative: No Urine Drug Screen Results: GABRIELA-Cocaine
[2017-12-17] MEDS ORDERED: MAGNESIUM HYDROX 2400MG/30ML ORAL SUSPENSION 30 ML CUP PO PRN (12:26)
[2017-12-17] MEDS ORDERED: chlordiazePOXIDE HCL 25 MG CAPSULE PO PRN (12:26)
[2017-12-17] MEDS ORDERED: MAG HYDROX/AL HYDROX/SIMETH 30 ML UNIT-DOSE CUP PO PRN (12:26)
[2017-12-17] MEDS ORDERED: ACETAMINOPHEN 325 MG TABLET (FP) PO PRN (12:26)
[2017-12-17] MEDS ORDERED: LOPERAMIDE HCL 2 MG CAPSULE PO PRN (12:26)
[2017-12-17] MEDS ORDERED: MENTHOL/PHENOL 1 EACH UD MM PRN (12:26)
[2017-12-17] MEDS ORDERED: IBUPROFEN 400 MG TABLET (FP) PO PRN (12:26)
[2017-12-17] MEDS ORDERED: P-EPHED 60MG/TRIPROLIDI 2.5MG TABLET PO PRN (12:26)
[2017-12-17] MEDS ORDERED: guaiFENesin/D-METHORPHAN HB 10 ML UNIT-DOSE CUPS PO PRN (12:26)
[2017-12-17] MEDS ORDERED: MAGNESIUM CITRATE 300 ML BOTTLE PO PRN (12:26)
[2017-12-17] MEDS ORDERED: hydrOXYzine PAMOATE 50 MG CAPSULE (FP) PO PRN (12:26)
[2017-12-17] MEDS ORDERED: chlordiazePOXIDE HCL 25 MG CAPSULE PO ONE (12:55)
--- NOTE | 2017-12-17 16:42 | PN ---
S Progress Note Note: CALLED BY NURSE VÁSQUEZ FOR BLOOD SUGAR OF 240 MG/DL AT 4:30 PM TODAY. PT ON GLUCOPHAGE 1000 MG PO BID. REPEAT FINGER STICK AT 8:00 PM TODAY. INFORM PROVIDER OF THE RESULT.
[2017-12-17] MEDS: chlordiazePOXIDE HCL 25 MG CAPSULE PO SCH ×2 (17:37→23:11)
[2017-12-17] MEDS: metFORMIN HCL 500 MG TABLET (FP) PO SCH (17:37)
[2017-12-17] MEDS ORDERED: MELATONIN 5 MG TABLETS PO PRN (22:00)
[2017-12-17] MEDS: THIAMINE HCL 100 MG TABLET (FP) PO SCH (22:10)
[2017-12-17] MEDS: ATORVASTATIN CA 40 MG TABLET (FP) PO SCH (22:10)
[2017-12-18] MEDS: chlordiazePOXIDE HCL 25 MG CAPSULE PO SCH ×4 (06:02→22:43)
[2017-12-18] MEDS: metFORMIN HCL 500 MG TABLET (FP) PO SCH ×2 (08:00→17:23)
[2017-12-18] MEDS: INSULIN SLIDING SCALE (NOVOLOG) 1 VIAL SQ SCH ×2 (08:05→17:24)
[2017-12-18] MEDS: PATIENT'S OWN MEDICATION (NON-FORMULARY) (Elviteg/Cob/Emtri/Tenof Alafen 1 EACH) PO SCH (08:11)
[2017-12-18] MEDS ORDERED: PATIENT'S OWN MEDICATION (NON-FORMULARY) (Elviteg/Cob/Emtri/Tenof Alafen 1 EACH) PO SCH (10:00)
[2017-12-18 10:03] LABS: URINE APPEARANCE CLEAR; URINE BILIRUBIN NEGATIVE (<2.0 mg/dL); URINE BLOOD NEGATIVE (NEGATIVE); URINE COLOR LTYELLOW; URINE GLUCOSE (UA) NEGATIVE (NEGATIVE); URINE KETONE NEGATIVE (NEGATIVE); URINE NITRITE NEGATIVE (NEGATIVE); URINE PROTEIN NEGATIVE (NEGATIVE); URINE UROBILINOGEN NEGATIVE mg/dL (0.2-1.0)
[2017-12-18 10:12] LABS: HEMATOCRIT 45.7 % (35.4-49); HEMOGLOBIN 14.9 GM/dL (11.7-16.9); MCH 28.4 pg (25.7-33.7); MCHC 32.6 g/dl (32.0-35.9); MEAN CELL VOLUME 86.9 fl (80-96); MEAN PLT VOLUME 9.4 fl (7.5-11.1); PLATELET COUNT 212 K/MM3 (134-434); RBC 5.25 M/mm3 (4.00-5.60); RDW 13.5 % (11.9-15.9); WHITE BLOOD COUNT 6.4 K/mm3 (4.0-10.0)
[2017-12-18 10:17] LABS: URINE LEUK ESTERASE 1+ (NEGATIVE)
--- NOTE | 2017-12-18 10:22 | PN ---
S CIWA - CIWA Score Nausea/Vomitin Muscle Tremors: 3 Anxiety: 2 Agitation: 2 Paroxysmal Sweats: 1-Minimal Palms Moist Orientation: 0-Oriented Tacttile Disturbances: 2-Mild Itch/Numbness/Burn Auditory Disturbances: 1-Very Mild Visual Disturbances: 0-None Headache: 2-Mild CIWA-Ar Total Score: 16 [facility] Progress Note (SOAP) Subjective: alert,irritable,anxious,interrupted sleep,tremor Objective: 12/18/17 10:17 Vital Signs Temperature 97.2 F L 12/18/17 06:22 Pulse Rate 70 12/18/17 06:22 Respiratory Rate 18 12/18/17 06:22 Blood Pressure 81/57 12/18/17 06:22 O2 Sat by Pulse Oximetry (%) ekg normal sinus rhythm,poor tracing prolong qt 418/447 no chest pain,no sob,no dizziness Laboratory Last Values WBC 6.4 K/mm3 (4.0-10.0) 12/18/17 06:00 RBC 5.25 M/mm3 (4.00-5.60) 12/18/17 06:00 Hgb 14.9 GM/dL (11.7-16.9) 12/18/17 06:00 Hct 45.7 % (35.4-49) 12/18/17 06:00 MCV 86.9 fl (80-96) 12/18/17 06:00 MCH 28.4 pg (25.7-33.7) 12/18/17 06:00 MCHC 32.6 g/dl (32.0-35.9) 12/18/17 06:00 RDW 13.5 % (11.9-15.9) 12/18/17 06:00 Plt Count 212 K/MM3 (134-434) 12/18/17 06:00 MPV 9.4 fl (7.5-11.1) 12/18/17 06:00 POC Glucometer 175 UNITS (80-120) 12/18/17 06:39 Urine Color Ltyellow 12/18/17 09:15 Urine Appearance Clear 12/18/17 09:15 Urine pH 5.0 (5.0-8.0) 12/18/17 09:15 Ur Specific [place] 1.009 (1.001-1.035) 12/18/17 09:15 Urine Protein Negative (NEGATIVE) 12/18/17 09:15 Urine Glucose (UA) Negative (NEGATIVE) 12/18/17 09:15 Urine Ketones Negative (NEGATIVE) 12/18/17 09:15 Urine Blood Negative (NEGATIVE) 12/18/17 09:15 Urine Nitrite Negative (NEGATIVE) 12/18/17 09:15 Urine Bilirubin Negative (<2.0 mg/dL) 12/18/17 09:15 Urine Urobilinogen Negative mg/dL (0.2-1.0) 12/18/17 09:15 Ur Leukocyte Esterase 1+ (NEGATIVE) H 12/18/17 09:15 12/18/17 10:22 labs pending Assessment: 12/18/17 10:22 withdrawal symptom Plan: continue detox
--- NOTE | 2017-12-18 10:24 | EKG ---
Test Reason : Blood Pressure : / mmHG Vent. Rate : 069 BPM Atrial Rate : 069 BPM P-R Int : 138 ms QRS Dur : 086 ms QT Int : 418 ms P-R-T Axes : 003 -44 -09 degrees QTc Int : 447 ms POOR DATA QUALITY, INTERPRETATION MAY BE ADVERSELY AFFECTED NORMAL SINUS RHYTHM LEFT AXIS DEVIATION SEPTAL INFARCT (CITED ON OR BEFORE 15-OCT-2016) ABNORMAL ECG WHEN COMPARED WITH ECG OF 14-MAR-2017 11:04, QUESTIONABLE CHANGE IN INITIAL FORCES OF SEPTAL LEADS Confirmed by GERMAN HERNÁNDEZ MD ([id number]) on 12/18/2017 10:24:15 AM Referred By: Confirmed By:GERMAN HERNÁNDEZ MD
[2017-12-18 10:26] LABS: CHLORIDE 102 mmol/L (98-107); POTASSIUM 4.2 mmol/L (3.5-5.1); SODIUM 138 mmol/L (136-145)
[2017-12-18] MEDS: ASPIRIN 81 MG CHEWABLE TABLETS PO SCH (10:33)
[2017-12-18] MEDS: PRENATAL VITAMINS W/ FOLIC ACID TABLET (FP) PO SCH (10:34)
[2017-12-18] MEDS: LISINOPRIL 20 MG TABLET (FP) PO SCH (10:34)
[2017-12-18 10:52] LABS: ALBUMIN 3.9 g/dl (3.4-5.0); ALK PHOS 111 U/L (45-117); ANION GAP 10 (8-16); BILIRUBIN,TOTAL 0.7 mg/dL (0.2-1.0); BLOOD UREA NITROGEN 16 mg/dL (7-18); CO2 26 mmol/L (21-32); CREATININE 1.5 mg/dL (0.7-1.3); SGOT/AST 15 U/L (15-37); SGPT/ALT 25 U/L (12-78); TOT PROT 7.7 g/dl (6.4-8.2)
[2017-12-18 11:05] LABS: EPI CELLS RARE /HPF (FEW); URINE HYALINE CAST 9 /lpf; URINE MUCUS RARE
[2017-12-18 11:46] LABS: GLUCOSE,RANDOM 312 mg/dL (74-106)
[2017-12-18] MEDS: THIAMINE HCL 100 MG TABLET (FP) PO SCH (22:14)
[2017-12-18] MEDS: ATORVASTATIN CA 40 MG TABLET (FP) PO SCH (22:14)
[2017-12-19] MEDS: chlordiazePOXIDE HCL 25 MG CAPSULE PO SCH ×3 (05:38→11:25)
[2017-12-19] MEDS: metFORMIN HCL 500 MG TABLET (FP) PO SCH ×2 (06:00→17:04)
[2017-12-19] MEDS: INSULIN SLIDING SCALE (NOVOLOG) 1 VIAL SQ SCH ×2 (06:42→17:05)
[2017-12-19] MEDS: PATIENT'S OWN MEDICATION (NON-FORMULARY) (Elviteg/Cob/Emtri/Tenof Alafen 1 EACH) PO SCH (08:24)
--- NOTE | 2017-12-19 10:04 | PN ---
[facility] - CIWA Score Nausea/Vomitin-No Nausea/No Vomiting Muscle Tremors: 1-None Visible, but [place] Anxiety: 2 Agitation: 2 Paroxysmal Sweats: 2 Orientation: 0-Oriented Tacttile Disturbances: 0-None Auditory Disturbances: 0-None Visual Disturbances: 0-None Headache: 0-None Present CIWA-Ar Total Score: 7 S Progress Note (SOAP) Subjective: sweats, body aches Objective: 12/19/17 10:03 Vital Signs Temperature 97.9 F 12/19/17 06:00 Pulse Rate 74 12/19/17 06:00 Respiratory Rate 18 12/19/17 06:00 Blood Pressure 105/67 12/19/17 06:00 O2 Sat by Pulse Oximetry (%) Laboratory Last Values WBC 6.4 K/mm3 (4.0-10.0) 12/18/17 06:00 RBC 5.25 M/mm3 (4.00-5.60) 12/18/17 06:00 Hgb 14.9 GM/dL (11.7-16.9) 12/18/17 06:00 Hct 45.7 % (35.4-49) 12/18/17 06:00 MCV 86.9 fl (80-96) 12/18/17 06:00 MCH 28.4 pg (25.7-33.7) 12/18/17 06:00 MCHC 32.6 g/dl (32.0-35.9) 12/18/17 06:00 RDW 13.5 % (11.9-15.9) 12/18/17 06:00 Plt Count 212 K/MM3 (134-434) 12/18/17 06:00 MPV 9.4 fl (7.5-11.1) 12/18/17 06:00 Sodium 138 mmol/L (136-145) 12/18/17 06:00 Potassium 4.2 mmol/L (3.5-5.1) 12/18/17 06:00 Chloride 102 mmol/L (98-107) 12/18/17 06:00 Carbon Dioxide 26 mmol/L (21-32) 12/18/17 06:00 Anion Gap 10 (8-16) 12/18/17 06:00 BUN 16 mg/dL (7-18) 12/18/17 06:00 Creatinine 1.5 mg/dL (0.7-1.3) H 12/18/17 06:00 Creat Clearance w eGFR 48.59 (>60) 12/18/17 06:00 POC Glucometer 160 UNITS (80-120) 12/19/17 05:37 Random Glucose 312 mg/dL (74-106) H* 12/18/17 06:00 Calcium 9.0 mg/dL (8.5-10.1) 12/18/17 06:00 Total Bilirubin 0.7 mg/dL (0.2-1.0) 12/18/17 06:00 AST 15 U/L (15-37) 12/18/17 06:00 ALT 25 U/L (12-78) 12/18/17 06:00 Alkaline Phosphatase 111 U/L (45-117) 12/18/17 06:00 Total Protein 7.7 g/dl (6.4-8.2) 12/18/17 06:00 Albumin 3.9 g/dl (3.4-5.0) 12/18/17 06:00 Urine Color Ltyellow 12/18/17 09:15 Urine Appearance Clear 12/18/17 09:15 Urine pH 5.0 (5.0-8.0) 12/18/17 09:15 Ur Specific [place] 1.009 (1.001-1.035) 12/18/17 09:15 Urine Protein Negative (NEGATIVE) 12/18/17 09:15 Urine Glucose (UA) Negative (NEGATIVE) 12/18/17 09:15 Urine Ketones Negative (NEGATIVE) 12/18/17 09:15 Urine Blood Negative (NEGATIVE) 12/18/17 09:15 Urine Nitrite Negative (NEGATIVE) 12/18/17 09:15 Urine Bilirubin Negative (<2.0 mg/dL) 12/18/17 09:15 Urine Urobilinogen Negative mg/dL (0.2-1.0) 12/18/17 09:15 Ur Leukocyte Esterase 1+ (NEGATIVE) H 12/18/17 09:15 Urine WBC (Auto) 23 /hpf (3-5) 12/18/17 09:15 Urine RBC (Auto) 1 /hpf (0-3) 12/18/17 09:15 Ur Epithelial Cells Rare /HPF (FEW) 12/18/17 09:15 Hyaline Casts 9 /lpf 12/18/17 09:15 Urine Mucus Rare 12/18/17 09:15 RPR Titer Nonreactive (NONREACTIVE) 12/18/17 06:00 labs reviewed Assessment: 12/19/17 10:04 Aox3 3, no apparent distress medically stable no adventitious breath sounds full rom Plan: continue detox continue to monitor
[2017-12-19] MEDS: ASPIRIN 81 MG CHEWABLE TABLETS PO SCH (11:22)
[2017-12-19] MEDS: LISINOPRIL 20 MG TABLET (FP) PO SCH (11:22)
[2017-12-19] MEDS: PRENATAL VITAMINS W/ FOLIC ACID TABLET (FP) PO SCH (11:22)
[2017-12-19] MEDS: chlordiazePOXIDE 5 MG CAPSULE PO SCH ×2 (17:04→22:07)
[2017-12-19] MEDS: THIAMINE HCL 100 MG TABLET (FP) PO SCH (22:07)
[2017-12-19] MEDS: ATORVASTATIN CA 40 MG TABLET (FP) PO SCH (22:08)
[2017-12-20] MEDS: chlordiazePOXIDE 5 MG CAPSULE PO SCH ×2 (05:37→10:07)
[2017-12-20] MEDS: metFORMIN HCL 500 MG TABLET (FP) PO SCH ×2 (06:36→16:38)
[2017-12-20] MEDS: INSULIN SLIDING SCALE (NOVOLOG) 1 VIAL SQ SCH ×2 (06:37→16:41)
[2017-12-20] MEDS: PATIENT'S OWN MEDICATION (NON-FORMULARY) (Elviteg/Cob/Emtri/Tenof Alafen 1 EACH) PO SCH (07:05)
[2017-12-20] MEDS: LISINOPRIL 20 MG TABLET (FP) PO SCH (10:07)
[2017-12-20] MEDS: ASPIRIN 81 MG CHEWABLE TABLETS PO SCH (10:07)
[2017-12-20] MEDS: PRENATAL VITAMINS W/ FOLIC ACID TABLET (FP) PO SCH (10:07)
--- NOTE | 2017-12-20 11:26 | PN ---
[facility] Progress Note (SOAP) Subjective: feeling better less sweat no tremor [facility] about [facility] Objective: 12/20/17 11:24 Vital Signs Temperature 98.4 F 12/20/17 09:03 Pulse Rate 81 12/20/17 09:03 Respiratory Rate 18 12/20/17 09:03 Blood Pressure 122/91 12/20/17 09:03 O2 Sat by Pulse Oximetry (%) Laboratory Last Values WBC 6.4 K/mm3 (4.0-10.0) 12/18/17 06:00 RBC 5.25 M/mm3 (4.00-5.60) 12/18/17 06:00 Hgb 14.9 GM/dL (11.7-16.9) 12/18/17 06:00 Hct 45.7 % (35.4-49) 12/18/17 06:00 MCV 86.9 fl (80-96) 12/18/17 06:00 MCH 28.4 pg (25.7-33.7) 12/18/17 06:00 MCHC 32.6 g/dl (32.0-35.9) 12/18/17 06:00 RDW 13.5 % (11.9-15.9) 12/18/17 06:00 Plt Count 212 K/MM3 (134-434) 12/18/17 06:00 MPV 9.4 fl (7.5-11.1) 12/18/17 06:00 Sodium 138 mmol/L (136-145) 12/18/17 06:00 Potassium 4.2 mmol/L (3.5-5.1) 12/18/17 06:00 Chloride 102 mmol/L (98-107) 12/18/17 06:00 Carbon Dioxide 26 mmol/L (21-32) 12/18/17 06:00 Anion Gap 10 (8-16) 12/18/17 06:00 BUN 16 mg/dL (7-18) 12/18/17 06:00 Creatinine 1.5 mg/dL (0.7-1.3) H 12/18/17 06:00 Creat Clearance w eGFR 48.59 (>60) 12/18/17 06:00 POC Glucometer 125 UNITS (80-120) 12/20/17 05:37 Random Glucose 312 mg/dL (74-106) H* 12/18/17 06:00 Calcium 9.0 mg/dL (8.5-10.1) 12/18/17 06:00 Total Bilirubin 0.7 mg/dL (0.2-1.0) 12/18/17 06:00 AST 15 U/L (15-37) 12/18/17 06:00 ALT 25 U/L (12-78) 12/18/17 06:00 Alkaline Phosphatase 111 U/L (45-117) 12/18/17 06:00 Total Protein 7.7 g/dl (6.4-8.2) 12/18/17 06:00 Albumin 3.9 g/dl (3.4-5.0) 12/18/17 06:00 Urine Color Ltyellow 12/18/17 09:15 Urine Appearance Clear 12/18/17 09:15 Urine pH 5.0 (5.0-8.0) 12/18/17 09:15 Ur Specific [place] 1.009 (1.001-1.035) 12/18/17 09:15 Urine Protein Negative (NEGATIVE) 12/18/17 09:15 Urine Glucose (UA) Negative (NEGATIVE) 12/18/17 09:15 Urine Ketones Negative (NEGATIVE) 12/18/17 09:15 Urine Blood Negative (NEGATIVE) 12/18/17 09:15 Urine Nitrite Negative (NEGATIVE) 12/18/17 09:15 Urine Bilirubin Negative (<2.0 mg/dL) 12/18/17 09:15 Urine Urobilinogen Negative mg/dL (0.2-1.0) 12/18/17 09:15 Ur Leukocyte Esterase 1+ (NEGATIVE) H 12/18/17 09:15 Urine WBC (Auto) 23 /hpf (3-5) 12/18/17 09:15 Urine RBC (Auto) 1 /hpf (0-3) 12/18/17 09:15 Ur Epithelial Cells Rare /HPF (FEW) 12/18/17 09:15 Hyaline Casts 9 /lpf 12/18/17 09:15 Urine Mucus Rare 12/18/17 09:15 RPR Titer Nonreactive (NONREACTIVE) 12/18/17 06:00 lab noted health teaching on diabetes related renal dysfunctioning Assessment: 12/20/17 11:25 mild withdrawal sx Plan: medically supervised detox patient acknowledged serum glucose control
[2017-12-20] MEDS: chlordiazePOXIDE HCL 10 MG CAPSULE PO SCH ×2 (17:01→22:14)
[2017-12-20] MEDS: THIAMINE HCL 100 MG TABLET (FP) PO SCH (22:14)
[2017-12-20] MEDS: ATORVASTATIN CA 40 MG TABLET (FP) PO SCH (22:14)
[2017-12-21] MEDS: chlordiazePOXIDE HCL 10 MG CAPSULE PO SCH (05:28)
[2017-12-21 06:27] VITALS: TEMP 97.9
[2017-12-21] MEDS: metFORMIN HCL 500 MG TABLET (FP) PO SCH (06:49)
[2017-12-21] MEDS: INSULIN SLIDING SCALE (NOVOLOG) 1 VIAL SQ SCH (06:50)
[2017-12-21] MEDS: PATIENT'S OWN MEDICATION (NON-FORMULARY) (Elviteg/Cob/Emtri/Tenof Alafen 1 EACH) PO SCH (07:31)
--- NOTE | 2017-12-21 08:24 | PN ---
S Progress Note (SOAP) Subjective: alert,no complaint Objective: 12/21/17 08:22 Vital Signs Temperature 97.9 F 12/21/17 06:26 Pulse Rate 80 12/21/17 06:26 Respiratory Rate 18 12/21/17 06:26 Blood Pressure 101/58 12/21/17 06:26 O2 Sat by Pulse Oximetry (%) Assessment: 12/21/17 08:22 detox completed,no withdrawal symptom Plan: discharge today,follow up with after care program as arrangement
--- NOTE | 2017-12-21 08:29 | DS ---
[facility] Detox Discharge Summary Admission Date: 12/17/17 Discharge Date: 12/21/17 - History Present History: Alcohol Dependence, Cocaine Dependence Pertinent Past History: hypertension type 2 dm hiv hyperchoelesterolemia insomnia - Physical Exam Results Vital Signs: Vital Signs Temperature 97.9 F 12/21/17 06:26 Pulse Rate 80 12/21/17 06:26 Respiratory Rate 18 12/21/17 06:26 Blood Pressure 101/58 12/21/17 06:26 O2 Sat by Pulse Oximetry (%) Pertinent Admission Physical Exam Findings: withdrawal signs and symptom Vital Signs Temperature 97.9 F 12/21/17 06:26 Pulse Rate 80 12/21/17 06:26 Respiratory Rate 18 12/21/17 06:26 Blood Pressure 101/58 12/21/17 06:26 O2 Sat by Pulse Oximetry (%) Laboratory Last Values WBC 6.4 K/mm3 (4.0-10.0) 12/18/17 06:00 RBC 5.25 M/mm3 (4.00-5.60) 12/18/17 06:00 Hgb 14.9 GM/dL (11.7-16.9) 12/18/17 06:00 Hct 45.7 % (35.4-49) 12/18/17 06:00 MCV 86.9 fl (80-96) 12/18/17 06:00 MCH 28.4 pg (25.7-33.7) 12/18/17 06:00 MCHC 32.6 g/dl (32.0-35.9) 12/18/17 06:00 RDW 13.5 % (11.9-15.9) 12/18/17 06:00 Plt Count 212 K/MM3 (134-434) 12/18/17 06:00 MPV 9.4 fl (7.5-11.1) 12/18/17 06:00 Sodium 138 mmol/L (136-145) 12/18/17 06:00 Potassium 4.2 mmol/L (3.5-5.1) 12/18/17 06:00 Chloride 102 mmol/L (98-107) 12/18/17 06:00 Carbon Dioxide 26 mmol/L (21-32) 12/18/17 06:00 Anion Gap 10 (8-16) 12/18/17 06:00 BUN 16 mg/dL (7-18) 12/18/17 06:00 Creatinine 1.5 mg/dL (0.7-1.3) H 12/18/17 06:00 Creat Clearance w eGFR 48.59 (>60) 12/18/17 06:00 POC Glucometer 144 UNITS (80-120) 12/21/17 05:29 Random Glucose 312 mg/dL (74-106) H* 12/18/17 06:00 Calcium 9.0 mg/dL (8.5-10.1) 12/18/17 06:00 Total Bilirubin 0.7 mg/dL (0.2-1.0) 12/18/17 06:00 AST 15 U/L (15-37) 12/18/17 06:00 ALT 25 U/L (12-78) 12/18/17 06:00 Alkaline Phosphatase 111 U/L (45-117) 12/18/17 06:00 Total Protein 7.7 g/dl (6.4-8.2) 12/18/17 06:00 Albumin 3.9 g/dl (3.4-5.0) 12/18/17 06:00 Urine Color Ltyellow 12/18/17 09:15 Urine Appearance Clear 12/18/17 09:15 Urine pH 5.0 (5.0-8.0) 12/18/17 09:15 Ur Specific [place] 1.009 (1.001-1.035) 12/18/17 09:15 Urine Protein Negative (NEGATIVE) 12/18/17 09:15 Urine Glucose (UA) Negative (NEGATIVE) 12/18/17 09:15 Urine Ketones Negative (NEGATIVE) 12/18/17 09:15 Urine Blood Negative (NEGATIVE) 12/18/17 09:15 Urine Nitrite Negative (NEGATIVE) 12/18/17 09:15 Urine Bilirubin Negative (<2.0 mg/dL) 12/18/17 09:15 Urine Urobilinogen Negative mg/dL (0.2-1.0) 12/18/17 09:15 Ur Leukocyte Esterase 1+ (NEGATIVE) H 12/18/17 09:15 Urine WBC (Auto) 23 /hpf (3-5) 12/18/17 09:15 Urine RBC (Auto) 1 /hpf (0-3) 12/18/17 09:15 Ur Epithelial Cells Rare /HPF (FEW) 12/18/17 09:15 Hyaline Casts 9 /lpf 12/18/17 09:15 Urine Mucus Rare 12/18/17 09:15 RPR Titer Nonreactive (NONREACTIVE) 12/18/17 06:00 - Treatment Hospital Course: Detox Protocol Followed, Detoxed Safely, Responded well, Discharged Condition Good Patient has Accepted a Rehab Referral to: declined - Medication Discharge Medications: Ambulatory Orders Aspirin [ASA -] 81 mg PO DAILY 12/17/13 Atorvastatin Calcium 40 mg PO HS 12/17/13 Elviteg/Cob/Emtri/Tenof Alafen [Genvoya (Non-Formulary)] 1 each PO DAILY Atorvastatin Ca [Lipitor] 40 mg PO HS #30 tablet 12/20/17 Lisinopril [Zestril] 20 mg PO DAILY #30 tablet 12/20/17 Metformin HCl [Glucophage] 1,000 mg PO BID #60 tablet 12/20/17 - Diagnosis (1) Alcohol dependence with uncomplicated withdrawal Current Visit: Yes Status: Chronic (2) Insomnia Current Visit: No Status: Acute (3) Anxiety Current Visit: No Status: Chronic (4) Cocaine dependence Current Visit: No Status: Chronic Qualifiers: Substance use status: uncomplicated Qualified Code(s): F14.20 - Cocaine dependence, uncomplicated (5) DM (diabetes mellitus), type 2 Current Visit: No Status: Chronic 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: 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 care use Diabetes mellitus complication status: without complication Qualified Code(s): E11.9 - Type 2 diabetes mellitus without complications (6) Essential hypertension Current Visit: No Status: Chronic (7) HIV (human immunodeficiency virus infection) Current Visit: Yes Status: Chronic (8) Hypercholesterolemia Current Visit: Yes Status: Chronic (9) Nicotine dependence Current Visit: Yes Status: Chronic Qualifiers: Nicotine product type: cigarettes Substance use status: uncomplicated Qualified Code(s): F17.210 - Nicotine dependence, cigarettes, uncomplicated (10) Knee pain, left Current Visit: Yes Status: Acute - AMA Did Patient Leave Against Medical Advice: Yes
[2017-12-21] MEDS: ASPIRIN 81 MG CHEWABLE TABLETS PO SCH (09:22)
[2017-12-21] MEDS: PRENATAL VITAMINS W/ FOLIC ACID TABLET (FP) PO SCH (09:22)
[2017-12-21] MEDS: LISINOPRIL 20 MG TABLET (FP) PO SCH (09:22)
[2017-12-21 09:39] VITALS: BP 109/77; PULSE 86
== END 2017-12-21 09:24 | disposition home or self-care (01) | DRG 897 ==
LOC: YASAS 08:21 → Y6N 12:54
PROVIDERS: ADMIT Surgery; ATTEND Surgery
PROC: HZ2ZZZZ Detoxification Services for Substance Abuse Treatment (ICD-10-PCS; principal; 2017-12-17)
DX: F10.230 Alcohol dependence with withdrawal, uncomplicated (principal); F14.20 Cocaine dependence, uncomplicated; F12.20 Cannabis dependence, uncomplicated; F17.210 Nicotine dependence, cigarettes, uncomplicated; F41.9 Anxiety disorder, unspecified; G47.00 Insomnia, unspecified; I10 Essential (primary) hypertension; E78.00 Pure hypercholesterolemia, unspecified; M25.562 Pain in left knee; E11.9 Type 2 diabetes mellitus without complications; Z79.84 Long term (current) use of oral hypoglycemic drugs; Z21 Asymptomatic human immunodeficiency virus [HIV] infection status
CPT/HCPCS: 36415; 80053; 81003; 81015; 82962; 85027; 86593; 93005; 93010

== ENCOUNTER 2022-05-10 12:52 | Inpatient (IN) | payer OTHER ==
[2022-05-10 13:21] VITALS: BMI 27.6
[2022-05-10] MEDS ORDERED: NICOTINE 10 MG CARTRIDGE (INHALER) IH PRN (16:39)
[2022-05-10] MEDS ORDERED: IBUPROFEN 600 MG TABLET (FP) PO PRN (16:39)
[2022-05-10] MEDS ORDERED: METHOCARBAMOL 500 MG TABLET PO PRN (16:39)
[2022-05-10] MEDS ORDERED: MAGNESIUM HYDROX 2400MG/30ML ORAL SUSPENSION 30 ML CUP PO PRN (16:39)
[2022-05-10] MEDS ORDERED: DICYCLOMINE HCL 10 MG CAPSULE PO PRN (16:39)
[2022-05-10] MEDS ORDERED: MAG HYDROX/AL HYDROX/SIMETH 30 ML UNIT-DOSE CUP PO PRN (16:39)
[2022-05-10] MEDS ORDERED: BENZOCAINE/MENTHOL (CHLORASEPTIC ) LOZENGE MM PRN (16:39)
[2022-05-10] MEDS ORDERED: IBUPROFEN 400 MG TABLET (FP) PO PRN (16:39)
[2022-05-10] MEDS ORDERED: NALOXONE HCL (KLOXXADO) 8 MG SPRAY NS PRN (16:39)
[2022-05-10] MEDS ORDERED: ACETAMINOPHEN 325 MG TABLET (FP) PO PRN ×2 (16:39)
[2022-05-10] MEDS ORDERED: ONDANSETRON *ODT* 4 MG TABLET SL PRN (16:39)
[2022-05-10] MEDS ORDERED: MAGNESIUM CITRATE 300 ML BOTTLE PO PRN (16:39)
[2022-05-10] MEDS ORDERED: LOPERAMIDE HCL 2 MG CAPSULE PO PRN (16:39)
[2022-05-10] MEDS ORDERED: hydrOXYzine PAMOATE 25 MG CAPSULE (FP) PO PRN (16:39)
[2022-05-10] MEDS ORDERED: chlordiazePOXIDE HCL 25 MG CAPSULE PO PRN (16:39)
[2022-05-10] MEDS ORDERED: BISMUTH SUBSALICYLATE 524 MG/30 ML PO PRN (16:39)
[2022-05-10] MEDS: MELATONIN 5 MG TABLETS PO SCH (22:35)
[2022-05-10] MEDS: ATORVASTATIN CA 40 MG TABLET (FP) PO SCH (22:35)
[2022-05-10] MEDS: THIAMINE HCL 100 MG TABLET (FP) PO SCH (22:35)
[2022-05-10] MEDS: chlordiazePOXIDE HCL 25 MG CAPSULE PO SCH (23:30)
[2022-05-11] MEDS: chlordiazePOXIDE HCL 25 MG CAPSULE PO SCH ×4 (05:38→22:41)
[2022-05-11] MEDS: metFORMIN HCL 500 MG TABLET (FP) PO SCH ×2 (07:33→17:18)
[2022-05-11] MEDS: BIKTARVY PO SCH (07:34)
[2022-05-11] MEDS: PRENATAL VITAMINS W/ FOLIC ACID TABLET (FP) PO SCH (10:50)
[2022-05-11] MEDS: ASPIRIN COATED 81 MG TABLET.EC PO SCH (10:50)
[2022-05-11 12:22] LABS: BLOOD UREA NITROGEN 40.6 mg/dL (7-18)
[2022-05-11 12:23] LABS: ALBUMIN 2.9 g/dl (3.4-5.0); CALCIUM 8.3 mg/dL (8.5-10.1)
[2022-05-11 12:27] LABS: TOT PROT 5.7 g/dl (6.4-8.2)
[2022-05-11 12:30] LABS: BILIRUBIN,TOTAL 0.7 mg/dL (0.2-1)
[2022-05-11 12:31] LABS: HEMATOCRIT 42.4 % (35.4-49); HEMOGLOBIN 13.6 GM/dL (11.7-16.9); MCH 28.3 pg (25.7-33.7); MCHC 32.1 g/dl (32.0-35.9); PLATELET COUNT 171 10^3/uL (134-434); RBC 4.82 M/mm3 (4.00-5.60); RDW 13.4 % (11.9-15.9); WHITE BLOOD COUNT 7.1 K/mm3 (4.0-10.0)
[2022-05-11] MEDS: THIAMINE HCL 100 MG TABLET (FP) PO SCH (22:41)
[2022-05-11] MEDS: MELATONIN 5 MG TABLETS PO SCH (22:41)
[2022-05-11] MEDS: ATORVASTATIN CA 40 MG TABLET (FP) PO SCH (22:41)
[2022-05-12] MEDS: metFORMIN HCL 500 MG TABLET (FP) PO SCH ×2 (06:13→17:45)
[2022-05-12] MEDS: chlordiazePOXIDE HCL 25 MG CAPSULE PO SCH ×4 (06:14→22:14)
[2022-05-12] MEDS: BIKTARVY PO SCH (07:58)
[2022-05-12] MEDS: PRENATAL VITAMINS W/ FOLIC ACID TABLET (FP) PO SCH (10:41)
[2022-05-12] MEDS: ASPIRIN COATED 81 MG TABLET.EC PO SCH (10:41)
[2022-05-12 11:28] LABS: BLOOD UREA NITROGEN 37.3 mg/dL (7-18)
[2022-05-12 11:31] LABS: CREATININE 1.5 mg/dL (0.55-1.3)
[2022-05-12 15:37] LABS: PH,URINE 5.5 (5.0-8.0); URINE APPEARANCE CLEAR; URINE BILIRUBIN NEGATIVE (NEGATIVE); URINE COLOR YELLOW; URINE GLUCOSE (UA) NEGATIVE (NEGATIVE); URINE KETONE NEGATIVE (NEGATIVE); URINE LEUK ESTERASE NEGATIVE (NEGATIVE); URINE NITRITE NEGATIVE (NEGATIVE); URINE PROTEIN TRACE (NEGATIVE); URINE UROBILINOGEN 0.2 mg/dL (0.2-1.0)
[2022-05-12] MEDS: ATORVASTATIN CA 40 MG TABLET (FP) PO SCH (22:14)
[2022-05-12] MEDS: THIAMINE HCL 100 MG TABLET (FP) PO SCH (22:14)
[2022-05-12] MEDS: MELATONIN 5 MG TABLETS PO SCH (22:14)
[2022-05-13] MEDS ORDERED: chlordiazePOXIDE HCL 10 MG CAPSULE PO PRN
[2022-05-13] MEDS ORDERED: chlordiazePOXIDE HCL 10 MG CAPSULE PO SCH (05:00)
[2022-05-13] MEDS: metFORMIN HCL 500 MG TABLET (FP) PO SCH (06:18)
[2022-05-13 06:46] VITALS: RESP 18
[2022-05-13] MEDS: BIKTARVY PO SCH (07:44)
[2022-05-13 09:07] VITALS: BP 117/82; PULSE 87; TEMP 98.2
[2022-05-14] MEDS ORDERED: chlordiazePOXIDE HCL 10 MG CAPSULE PO SCH (05:00)
[2022-05-15] MEDS ORDERED: chlordiazePOXIDE HCL 10 MG CAPSULE PO ONE (05:00)
== END 2022-05-13 10:50 | disposition home or self-care (01) | DRG 897 ==
LOC: YASAS 12:52 → Y3N 16:59
PROVIDERS: ADMIT Allergy & Immunology; ATTEND Surgery
PROC: HZ2ZZZZ Detoxification Services for Substance Abuse Treatment (ICD-10-PCS; principal; 2022-05-10)
DX: F10.230 Alcohol dependence with withdrawal, uncomplicated (principal); F14.20 Cocaine dependence, uncomplicated; F17.210 Nicotine dependence, cigarettes, uncomplicated; F41.9 Anxiety disorder, unspecified; F32.A Depression, unspecified; Z21 Asymptomatic human immunodeficiency virus [HIV] infection status; E78.5 Hyperlipidemia, unspecified; I10 Essential (primary) hypertension; E11.9 Type 2 diabetes mellitus without complications; R76.8 Other specified abnormal immunological findings in serum; R79.89 Other specified abnormal findings of blood chemistry; Z86.19 Personal history of other infectious and parasitic diseases
CPT/HCPCS: 36415; 80053; 81003; 82565; 82962; 84520; 85027; 86593; 86780; C9803-CS; U0003; U0005

== ENCOUNTER 2022-06-23 10:40 | Inpatient (IN) | payer OTHER ==
[2022-06-23 12:36] VITALS: BMI 27.1
[2022-06-23] MEDS ORDERED: NICOTINE 14 MG/24 HOURS TOPICAL PATCH TD PRN (13:07)
[2022-06-23] MEDS ORDERED: diazePAM 5 MG TABLET PO PRN (13:07)
[2022-06-23] MEDS ORDERED: BISMUTH SUBSALICYLATE 524 MG/30 ML PO PRN (13:07)
[2022-06-23] MEDS ORDERED: ACETAMINOPHEN 325 MG TABLET (FP) PO PRN ×2 (13:07)
[2022-06-23] MEDS ORDERED: ONDANSETRON *ODT* 4 MG TABLET SL PRN (13:07)
[2022-06-23] MEDS ORDERED: IBUPROFEN 600 MG TABLET (FP) PO PRN (13:07)
[2022-06-23] MEDS ORDERED: IBUPROFEN 400 MG TABLET (FP) PO PRN (13:07)
[2022-06-23] MEDS ORDERED: NICOTINE 10 MG CARTRIDGE (INHALER) IH PRN (13:07)
[2022-06-23] MEDS ORDERED: POLYETHYLENE GLYCOL (HEALTHYLAX) 3350 17 GM PACKET PO PRN (13:07)
[2022-06-23] MEDS ORDERED: MAGNESIUM HYDROX 2400MG/30ML ORAL SUSPENSION 30 ML CUP PO PRN (13:07)
[2022-06-23] MEDS ORDERED: NICOTINE POLACRILEX 4 MG GUM BUC PRN (13:07)
[2022-06-23] MEDS ORDERED: LOPERAMIDE HCL 2 MG CAPSULE PO PRN (13:07)
[2022-06-23] MEDS ORDERED: DICYCLOMINE HCL 10 MG CAPSULE PO PRN (13:07)
[2022-06-23] MEDS ORDERED: BENZOCAINE/MENTHOL (CHLORASEPTIC ) LOZENGE MM PRN (13:07)
[2022-06-23] MEDS ORDERED: MAG HYDROX/AL HYDROX/SIMETH 30 ML UNIT-DOSE CUP PO PRN (13:07)
[2022-06-23] MEDS: diazePAM 5 MG TABLET PO SCH ×2 (17:24→22:18)
[2022-06-23] MEDS: THIAMINE HCL 100 MG TABLET (FP) PO SCH (22:17)
[2022-06-23] MEDS: MELATONIN 5 MG TABLETS PO SCH (22:18)
[2022-06-24] MEDS: diazePAM 5 MG TABLET PO SCH ×4 (05:21→22:41)
[2022-06-24] MEDS ORDERED: LISINOPRIL 20 MG TABLET PO SCH (10:00)
[2022-06-24] MEDS: PRENATAL VITAMINS W/ FOLIC ACID TABLET (FP) PO SCH (10:17)
[2022-06-24] MEDS: hydrOXYzine PAMOATE 25 MG CAPSULE (FP) PO PRN (10:18)
[2022-06-24] MEDS: METHOCARBAMOL 500 MG TABLET PO PRN (10:18)
[2022-06-24] MEDS: PYRIDOXINE HCL (B-6) 50 MG TABLET (FP) PO SCH (11:27)
[2022-06-24] MEDS: PATIENT'S OWN MEDICATION (NON-FORMULARY) (Bictegrav/Emtricit/Tenofov Ala [Biktarvy 50-200- PO SCH (11:27)
[2022-06-24 11:35] LABS: HEMATOCRIT 41.1 % (35.4-49); HEMOGLOBIN 13.4 GM/dL (11.7-16.9); MCH 28.8 pg (25.7-33.7); MCHC 32.6 g/dl (32.0-35.9); MEAN CELL VOLUME 88.2 fl (80-96); MEAN PLT VOLUME 8.5 fl (7.5-11.1); PLATELET COUNT 200 10^3/uL (134-434); RBC 4.66 M/mm3 (4.00-5.60); RDW 13.1 % (11.9-15.9); WHITE BLOOD COUNT 4.8 K/mm3 (4.0-10.0)
[2022-06-24 12:07] LABS: BILIRUBIN,TOTAL 0.9 mg/dL (0.2-1); BLOOD UREA NITROGEN 31.5 mg/dL (7-18); CALCIUM 8.6 mg/dL (8.5-10.1); CREATININE 1.4 mg/dL (0.55-1.3)
[2022-06-24] MEDS ORDERED: metFORMIN HCL 500 MG TABLET (FP) PO SCH (16:30)
[2022-06-24] MEDS: METFORMIN HCL 1000 MG PO SCH (17:51)
[2022-06-24] MEDS: MELATONIN 5 MG TABLETS PO SCH (22:40)
[2022-06-24] MEDS: THIAMINE HCL 100 MG TABLET (FP) PO SCH (22:40)
[2022-06-24] MEDS: ATORVASTATIN CA 40 MG TABLET (FP) PO SCH (22:40)
[2022-06-25] MEDS: diazePAM 5 MG TABLET PO SCH ×3 (07:11→22:37)
[2022-06-25] MEDS: METFORMIN HCL 1000 MG PO SCH ×2 (07:12→16:59)
[2022-06-25] MEDS: PATIENT'S OWN MEDICATION (NON-FORMULARY) (Bictegrav/Emtricit/Tenofov Ala [Biktarvy 50-200- PO SCH (07:12)
[2022-06-25] MEDS: ASPIRIN 81 MG CHEWABLE TABLETS PO SCH (10:43)
[2022-06-25] MEDS: PRENATAL VITAMINS W/ FOLIC ACID TABLET (FP) PO SCH (10:43)
[2022-06-25] MEDS: METHOCARBAMOL 500 MG TABLET PO PRN (10:43)
[2022-06-25] MEDS: LISINOPRIL 20 MG PO SCH (10:44)
[2022-06-25] MEDS: PYRIDOXINE HCL (B-6) 50 MG TABLET (FP) PO SCH (10:44)
[2022-06-25] MEDS: hydrOXYzine PAMOATE 25 MG CAPSULE (FP) PO PRN (10:44)
[2022-06-25 14:58] LABS: BLOOD UREA NITROGEN 21.1 mg/dL (7-18)
[2022-06-25 15:01] LABS: CREATININE 1.3 mg/dL (0.55-1.3)
[2022-06-25 20:53] VITALS: RESP 16
[2022-06-25] MEDS: THIAMINE HCL 100 MG TABLET (FP) PO SCH (22:36)
[2022-06-25] MEDS: ATORVASTATIN CA 40 MG TABLET (FP) PO SCH (22:36)
[2022-06-25] MEDS: MELATONIN 5 MG TABLETS PO SCH (22:38)
[2022-06-26] MEDS ORDERED: diazePAM 5 MG TABLET PO SCH (06:00)
[2022-06-26] MEDS: PATIENT'S OWN MEDICATION (NON-FORMULARY) (Bictegrav/Emtricit/Tenofov Ala [Biktarvy 50-200- PO SCH (07:23)
[2022-06-26] MEDS: METFORMIN HCL 1000 MG PO SCH (07:23)
[2022-06-26 10:38] VITALS: BP 117/71; PULSE 76; TEMP 97.3
[2022-06-26] MEDS: PRENATAL VITAMINS W/ FOLIC ACID TABLET (FP) PO SCH (11:20)
[2022-06-26] MEDS: ASPIRIN 81 MG CHEWABLE TABLETS PO SCH (11:20)
[2022-06-26] MEDS: LISINOPRIL 20 MG PO SCH (11:20)
[2022-06-26] MEDS: PYRIDOXINE HCL (B-6) 50 MG TABLET (FP) PO SCH (11:20)
[2022-06-27] MEDS ORDERED: diazePAM 5 MG TABLET PO ONE (06:00)
== END 2022-06-26 11:58 | disposition home or self-care (01) | DRG 897 ==
LOC: YASAS 10:40 → Y6N 15:04
PROVIDERS: ADMIT Allergy & Immunology; ATTEND Surgery
PROC: HZ2ZZZZ Detoxification Services for Substance Abuse Treatment (ICD-10-PCS; principal; 2022-06-23)
DX: F10.230 Alcohol dependence with withdrawal, uncomplicated (principal); F14.20 Cocaine dependence, uncomplicated; F12.20 Cannabis dependence, uncomplicated; F17.210 Nicotine dependence, cigarettes, uncomplicated; F10.24 Alcohol dependence with alcohol-induced mood disorder; Z21 Asymptomatic human immunodeficiency virus [HIV] infection status; G47.00 Insomnia, unspecified; I10 Essential (primary) hypertension; E11.9 Type 2 diabetes mellitus without complications; Z79.84 Long term (current) use of oral hypoglycemic drugs; R76.8 Other specified abnormal immunological findings in serum; R63.4 Abnormal weight loss; Z68.27 Body mass index [BMI] 27.0-27.9, adult; Z62.810 Personal history of physical and sexual abuse in childhood; Z20.822 Contact with and (suspected) exposure to COVID-19
CPT/HCPCS: 36415; 80053; 82565; 82962; 84520; 85027; 86593; 86780; C9803-CS; U0003; U0005

== ENCOUNTER 2023-05-01 14:30 | Inpatient (IN) | payer OTHER ==
[2023-05-01 15:43] VITALS: BMI 28.9
[2023-05-01] MEDS ORDERED: IBUPROFEN 400 MG TABLET (FP) PO PRN (19:17)
[2023-05-01] MEDS ORDERED: IBUPROFEN 600 MG TABLET (FP) PO PRN (19:17)
[2023-05-01] MEDS ORDERED: hydrOXYzine PAMOATE 25 MG CAPSULE (FP) PO PRN (19:17)
[2023-05-01] MEDS ORDERED: NALOXONE HCL 0.4 MG/ML VIAL IM PRN (19:17)
[2023-05-01] MEDS ORDERED: COLLOIDAL OATMEAL 1 BAR EACH TP PRN (19:17)
[2023-05-01] MEDS ORDERED: NALOXONE HCL (KLOXXADO) 8 MG SPRAY NS PRN (19:17)
[2023-05-01] MEDS ORDERED: LOPERAMIDE HCL 2 MG CAPSULE PO PRN (19:17)
[2023-05-01] MEDS ORDERED: NICOTINE POLACRILEX 2 MG GUM BUC PRN (19:17)
[2023-05-01] MEDS ORDERED: MAG HYDROX/AL HYDROX/SIMETH 30 ML UNIT-DOSE CUP PO PRN (19:17)
[2023-05-01] MEDS ORDERED: BENZONATATE 200 MG CAPSULE PO PRN (19:17)
[2023-05-01] MEDS ORDERED: BENZOCAINE/MENTHOL (CHLORASEPTIC ) LOZENGE MM PRN (19:17)
[2023-05-01] MEDS ORDERED: ACETAMINOPHEN 325 MG TABLET (FP) PO PRN (19:17)
[2023-05-01] MEDS ORDERED: guaiFENesin 600 MG TABLET.ER (FP) PO PRN (19:17)
[2023-05-01] MEDS ORDERED: MAGNESIUM HYDROX 2400MG/30ML ORAL SUSPENSION 30 ML CUP PO PRN (19:17)
[2023-05-01] MEDS ORDERED: POLYETHYLENE GLYCOL (HEALTHYLAX) 3350 17 GM PACKET PO PRN (19:17)
[2023-05-01] MEDS: MELATONIN 5 MG TABLETS PO SCH (23:16)
[2023-05-01] MEDS: THIAMINE HCL 100 MG TABLET (FP) PO SCH (23:16)
[2023-05-02] MEDS ORDERED: ASPIRIN 325 MG TABLET PO SCH (10:00)
[2023-05-02] MEDS: PRENATAL VITAMINS W/ FOLIC ACID TABLET (FP) PO SCH (10:04)
[2023-05-02] MEDS: BICTEGRAV/EMTRICIT/TENOFOV (BIKTARVY) 50-200-25 MG TABLET PO SCH (10:05)
[2023-05-02] MEDS: LISINOPRIL 20 MG TABLET PO SCH (10:05)
[2023-05-02] MEDS: ASPIRIN COATED 81 MG TABLET.EC PO SCH (12:13)
[2023-05-02 12:14] LABS: HEMATOCRIT 44.3 % (35.4-49); HEMOGLOBIN 14.7 GM/dL (11.7-16.9); MCH 28.8 pg (25.7-33.7); MCHC 33.3 g/dl (32.0-35.9); MEAN CELL VOLUME 86.5 fl (80-96); MEAN PLT VOLUME 8.8 fl (7.5-11.1); PLATELET COUNT 223 10^3/uL (134-434); RBC 5.12 M/mm3 (4.00-5.60); RDW 13.2 % (11.9-15.9); WHITE BLOOD COUNT 5.2 K/mm3 (4.0-10.0)
[2023-05-02] MEDS: PYRIDOXINE HCL (B-6) 50 MG TABLET (FP) PO SCH (12:14)
[2023-05-02 12:25] LABS: POTASSIUM 4.5 mmol/L (3.5-5.1)
[2023-05-02 12:26] LABS: CALCIUM 8.6 mg/dL (8.5-10.1)
[2023-05-02 12:27] LABS: ALBUMIN 3.4 g/dl (3.4-5.0); BLOOD UREA NITROGEN 31.5 mg/dL (7-18)
[2023-05-02 12:30] LABS: CREATININE 1.4 mg/dL (0.55-1.3)
[2023-05-02 12:32] LABS: BILIRUBIN,TOTAL 0.8 mg/dL (0.2-1)
[2023-05-02 15:15] LABS: EPI CELLS 3 /uL (0-25.1); HYALINE CASTS 0 /uL (0-3.1); PH,URINE 5.5 (5.0-8.0); URINE APPEARANCE CLEAR; URINE BACTERIA 33 /uL (0-1359); URINE BILIRUBIN NEGATIVE (NEGATIVE); URINE COLOR YELLOW; URINE GLUCOSE (UA) 2+ (NEGATIVE); URINE KETONE NEGATIVE (NEGATIVE); URINE LEUK ESTERASE NEGATIVE (NEGATIVE); URINE NITRITE NEGATIVE (NEGATIVE); URINE PROTEIN 1+ (NEGATIVE); URINE RBC 3 /uL (0-23.9); URINE UROBILINOGEN 0.2 mg/dL (0.2-1.0); URINE WBC 4 /uL (0-25.8)
[2023-05-02] MEDS: metFORMIN HCL 500 MG TABLET (FP) PO SCH (17:04)
[2023-05-02] MEDS: MELATONIN 5 MG TABLETS PO SCH (22:02)
[2023-05-02] MEDS: THIAMINE HCL 100 MG TABLET (FP) PO SCH (22:02)
[2023-05-02] MEDS: ATORVASTATIN CA 40 MG TABLET (FP) PO SCH (22:03)
[2023-05-03] MEDS: metFORMIN HCL 500 MG TABLET (FP) PO SCH ×2 (06:45→17:05)
[2023-05-03] MEDS: BICTEGRAV/EMTRICIT/TENOFOV (BIKTARVY) 50-200-25 MG TABLET PO SCH (09:51)
[2023-05-03] MEDS: PYRIDOXINE HCL (B-6) 50 MG TABLET (FP) PO SCH (09:51)
[2023-05-03] MEDS: ASPIRIN COATED 81 MG TABLET.EC PO SCH (09:51)
[2023-05-03] MEDS: LISINOPRIL 20 MG TABLET PO SCH (09:51)
[2023-05-03] MEDS: PRENATAL VITAMINS W/ FOLIC ACID TABLET (FP) PO SCH (09:51)
[2023-05-03] MEDS: ATORVASTATIN CA 40 MG TABLET (FP) PO SCH (21:20)
[2023-05-03] MEDS: MELATONIN 5 MG TABLETS PO SCH (21:20)
[2023-05-03] MEDS: THIAMINE HCL 100 MG TABLET (FP) PO SCH (21:20)
[2023-05-04] MEDS: metFORMIN HCL 500 MG TABLET (FP) PO SCH ×2 (06:47→16:48)
[2023-05-04 07:17] VITALS: RESP 18
[2023-05-04] MEDS: PYRIDOXINE HCL (B-6) 50 MG TABLET (FP) PO SCH (10:04)
[2023-05-04] MEDS: LISINOPRIL 20 MG TABLET PO SCH (10:04)
[2023-05-04] MEDS: BICTEGRAV/EMTRICIT/TENOFOV (BIKTARVY) 50-200-25 MG TABLET PO SCH (10:04)
[2023-05-04] MEDS: PRENATAL VITAMINS W/ FOLIC ACID TABLET (FP) PO SCH (10:04)
[2023-05-04] MEDS: ASPIRIN COATED 81 MG TABLET.EC PO SCH (10:04)
[2023-05-04] MEDS ORDERED: PNEUMOC 20-VAL CONJ-DIP CRM/PF 0.5 ML SYRINGE IM ONE (12:00)
[2023-05-04] MEDS: ATORVASTATIN CA 40 MG TABLET (FP) PO SCH (21:17)
[2023-05-04] MEDS: MELATONIN 5 MG TABLETS PO SCH (21:17)
[2023-05-04] MEDS: THIAMINE HCL 100 MG TABLET (FP) PO SCH (21:17)
[2023-05-05 06:39] VITALS: BP 133/89; PULSE 74; TEMP 97.5
[2023-05-05] MEDS: metFORMIN HCL 500 MG TABLET (FP) PO SCH (07:35)
[2023-05-05] MEDS: BICTEGRAV/EMTRICIT/TENOFOV (BIKTARVY) 50-200-25 MG TABLET PO SCH (09:18)
[2023-05-05] MEDS: PYRIDOXINE HCL (B-6) 50 MG TABLET (FP) PO SCH (09:18)
[2023-05-05] MEDS: ASPIRIN COATED 81 MG TABLET.EC PO SCH (09:18)
[2023-05-05] MEDS: PRENATAL VITAMINS W/ FOLIC ACID TABLET (FP) PO SCH (09:18)
[2023-05-05] MEDS: LISINOPRIL 20 MG TABLET PO SCH (09:18)
== END 2023-05-05 10:15 | disposition home or self-care (01) | DRG 895 ==
LOC: YASAS 14:30 → Y5N 21:30
PROVIDERS: ADMIT Allergy & Immunology; ATTEND Psychiatry & Neurology Pain Medicine
PROC: HZ42ZZZ Group Counseling for Substance Abuse Treatment, Cognitive-Behavioral (ICD-10-PCS; principal; 2023-05-01)
DX: F10.20 Alcohol dependence, uncomplicated (principal); F14.20 Cocaine dependence, uncomplicated; F17.210 Nicotine dependence, cigarettes, uncomplicated; F41.9 Anxiety disorder, unspecified; F32.A Depression, unspecified; Z21 Asymptomatic human immunodeficiency virus [HIV] infection status; E78.5 Hyperlipidemia, unspecified; E11.59 Type 2 diabetes mellitus with other circulatory complications; Z79.84 Long term (current) use of oral hypoglycemic drugs
CPT/HCPCS: 36415; 80053; 81003; 82962; 85027; 86593; 86780; 87635

== ENCOUNTER 2023-06-17 15:21 | Inpatient (IN) | payer OTHER ==
[2023-06-17] MEDS ORDERED: hydrOXYzine PAMOATE 25 MG CAPSULE (FP) PO PRN (19:16)
[2023-06-17] MEDS ORDERED: MAG HYDROX/AL HYDROX/SIMETH 30 ML UNIT-DOSE CUP PO PRN (19:16)
[2023-06-17] MEDS ORDERED: BISMUTH SUBSALICYLATE 524 MG/30 ML PO PRN (19:16)
[2023-06-17] MEDS ORDERED: POLYETHYLENE GLYCOL (HEALTHYLAX) 3350 17 GM PACKET PO PRN (19:16)
[2023-06-17] MEDS ORDERED: BENZOCAINE/MENTHOL (CHLORASEPTIC ) LOZENGE MM PRN (19:16)
[2023-06-17] MEDS ORDERED: NALOXONE HCL (KLOXXADO) 8 MG SPRAY NS PRN (19:16)
[2023-06-17] MEDS ORDERED: IBUPROFEN 400 MG TABLET (FP) PO PRN (19:16)
[2023-06-17] MEDS ORDERED: MAGNESIUM HYDROX 2400MG/30ML ORAL SUSPENSION 30 ML CUP PO PRN (19:16)
[2023-06-17] MEDS ORDERED: METHOCARBAMOL 500 MG TABLET PO PRN (19:16)
[2023-06-17] MEDS ORDERED: LOPERAMIDE HCL 2 MG CAPSULE PO PRN (19:16)
[2023-06-17] MEDS ORDERED: DICYCLOMINE HCL 10 MG CAPSULE PO PRN (19:16)
[2023-06-17] MEDS ORDERED: NALOXONE HCL 0.4 MG/ML VIAL IM PRN (19:16)
[2023-06-17] MEDS ORDERED: ONDANSETRON *ODT* 4 MG TABLET SL PRN (19:16)
[2023-06-17] MEDS ORDERED: guaiFENesin 600 MG TABLET.ER (FP) PO PRN (19:16)
[2023-06-17] MEDS ORDERED: BENZONATATE 200 MG CAPSULE PO PRN (19:16)
[2023-06-17] MEDS ORDERED: IBUPROFEN 600 MG TABLET (FP) PO PRN (19:16)
[2023-06-17] MEDS ORDERED: ACETAMINOPHEN 325 MG TABLET (FP) PO PRN (19:16)
[2023-06-17 19:22] VITALS: BMI 27.1
[2023-06-17] MEDS: THIAMINE HCL 100 MG TABLET (FP) PO SCH (23:13)
[2023-06-17] MEDS: MELATONIN 5 MG TABLETS PO SCH (23:13)
[2023-06-18] MEDS: metFORMIN HCL 500 MG TABLET (FP) PO SCH ×2 (06:03→17:30)
[2023-06-18] MEDS: ASPIRIN COATED 81 MG TABLET.EC PO SCH (10:20)
[2023-06-18] MEDS: PRENATAL VITAMINS W/ FOLIC ACID TABLET (FP) PO SCH (10:20)
[2023-06-18] MEDS: LISINOPRIL 20 MG TABLET PO SCH (10:20)
[2023-06-18 10:35] LABS: HEMATOCRIT 46.1 % (35.4-49); HEMOGLOBIN 14.8 GM/dL (11.7-16.9); MCH 28.2 pg (25.7-33.7); MCHC 32.1 g/dl (32.0-35.9); MEAN PLT VOLUME 9.1 fl (7.5-11.1); PLATELET COUNT 212 10^3/uL (134-434); RBC 5.24 M/mm3 (4.00-5.60); RDW 13.3 % (11.9-15.9); WHITE BLOOD COUNT 5.7 K/mm3 (4.0-10.0)
[2023-06-18 11:04] LABS: CHLORIDE 106 mmol/L (98-107); POTASSIUM 5.1 mmol/L (3.5-5.1); SODIUM 137 mmol/L (136-145)
[2023-06-18 11:06] LABS: CALCIUM 9.1 mg/dL (8.5-10.1); GLUCOSE,RANDOM 260 mg/dL (74-106)
[2023-06-18 11:07] LABS: ALBUMIN 3.6 g/dl (3.4-5.0); ANION GAP 1 mmol/L (4-13); BLOOD UREA NITROGEN 25.8 mg/dL (7-18); CO2 30 mmol/L (21-32)
[2023-06-18] MEDS ORDERED: chlordiazePOXIDE HCL 25 MG CAPSULE PO PRN (11:07)
[2023-06-18 11:09] LABS: CREATININE 1.5 mg/dL (0.55-1.3); SGPT/ALT 23 U/L (13-61)
[2023-06-18 11:10] LABS: SGOT/AST 15 U/L (15-37)
[2023-06-18 11:11] LABS: BILIRUBIN,TOTAL 1.1 mg/dL (0.2-1); TOT PROT 7.4 g/dl (6.4-8.2)
[2023-06-18 11:12] LABS: ALK PHOS 126 U/L (45-117)
[2023-06-18] MEDS: chlordiazePOXIDE HCL 25 MG CAPSULE PO SCH ×2 (11:42→17:38)
[2023-06-18] MEDS: BICTEGRAV/EMTRICIT/TENOFOV (BIKTARVY) 50-200-25 MG TABLET PO SCH (11:45)
[2023-06-18] MEDS: MELATONIN 5 MG TABLETS PO SCH (22:20)
[2023-06-18] MEDS: THIAMINE HCL 100 MG TABLET (FP) PO SCH (22:20)
[2023-06-18] MEDS: ATORVASTATIN CA 40 MG TABLET (FP) PO SCH (22:20)
[2023-06-19] MEDS: metFORMIN HCL 500 MG TABLET (FP) PO SCH ×2 (06:09→16:54)
[2023-06-19] MEDS: BICTEGRAV/EMTRICIT/TENOFOV (BIKTARVY) 50-200-25 MG TABLET PO SCH (07:07)
[2023-06-19] MEDS: ASPIRIN COATED 81 MG TABLET.EC PO SCH (10:15)
[2023-06-19] MEDS: LISINOPRIL 20 MG TABLET PO SCH (10:15)
[2023-06-19] MEDS: PRENATAL VITAMINS W/ FOLIC ACID TABLET (FP) PO SCH (10:15)
[2023-06-19 11:09] LABS: CREATININE 1.5 mg/dL (0.55-1.3)
[2023-06-19] MEDS: ATORVASTATIN CA 40 MG TABLET (FP) PO SCH (22:28)
[2023-06-19] MEDS: MELATONIN 5 MG TABLETS PO SCH (22:28)
[2023-06-19] MEDS: THIAMINE HCL 100 MG TABLET (FP) PO SCH (22:29)
[2023-06-20] MEDS: chlordiazePOXIDE HCL 25 MG CAPSULE PO SCH ×4 (05:45→22:31)
[2023-06-20] MEDS: metFORMIN HCL 500 MG TABLET (FP) PO SCH ×2 (06:28→17:14)
[2023-06-20] MEDS: BICTEGRAV/EMTRICIT/TENOFOV (BIKTARVY) 50-200-25 MG TABLET PO SCH (07:35)
[2023-06-20] MEDS: LISINOPRIL 20 MG TABLET PO SCH (10:13)
[2023-06-20] MEDS: PRENATAL VITAMINS W/ FOLIC ACID TABLET (FP) PO SCH (10:13)
[2023-06-20] MEDS: ASPIRIN COATED 81 MG TABLET.EC PO SCH (10:13)
[2023-06-20] MEDS: ATORVASTATIN CA 40 MG TABLET (FP) PO SCH (22:31)
[2023-06-20] MEDS: THIAMINE HCL 100 MG TABLET (FP) PO SCH (22:31)
[2023-06-20] MEDS: MELATONIN 5 MG TABLETS PO SCH (22:31)
[2023-06-21] MEDS ORDERED: chlordiazePOXIDE HCL 10 MG CAPSULE PO PRN
[2023-06-21] MEDS: chlordiazePOXIDE HCL 10 MG CAPSULE PO SCH ×2 (05:35→10:00)
[2023-06-21] MEDS: metFORMIN HCL 500 MG TABLET (FP) PO SCH (06:14)
[2023-06-21 06:23] VITALS: BP 112/77; PULSE 69; RESP 18; TEMP 97.9
[2023-06-21] MEDS: BICTEGRAV/EMTRICIT/TENOFOV (BIKTARVY) 50-200-25 MG TABLET PO SCH (07:29)
[2023-06-21] MEDS: LISINOPRIL 20 MG TABLET PO SCH (09:00)
[2023-06-21] MEDS: ASPIRIN COATED 81 MG TABLET.EC PO SCH (09:00)
[2023-06-21] MEDS: PRENATAL VITAMINS W/ FOLIC ACID TABLET (FP) PO SCH (09:00)
[2023-06-22] MEDS ORDERED: chlordiazePOXIDE HCL 10 MG CAPSULE PO SCH (05:00)
[2023-06-23] MEDS ORDERED: chlordiazePOXIDE HCL 10 MG CAPSULE PO ONE (05:00)
== END 2023-06-21 08:47 | disposition left against medical advice (07) | DRG 894 ==
LOC: YASAS 15:21 → Y3N 19:22
PROVIDERS: ADMIT Allergy & Immunology; ATTEND Surgery
PROC: HZ2ZZZZ Detoxification Services for Substance Abuse Treatment (ICD-10-PCS; principal; 2023-06-17)
DX: F10.230 Alcohol dependence with withdrawal, uncomplicated (principal); F14.20 Cocaine dependence, uncomplicated; F17.210 Nicotine dependence, cigarettes, uncomplicated; F41.9 Anxiety disorder, unspecified; F32.A Depression, unspecified; Z21 Asymptomatic human immunodeficiency virus [HIV] infection status; I10 Essential (primary) hypertension; E11.9 Type 2 diabetes mellitus without complications; Z79.84 Long term (current) use of oral hypoglycemic drugs; R76.8 Other specified abnormal immunological findings in serum; Z86.19 Personal history of other infectious and parasitic diseases
CPT/HCPCS: 36415; 80053; 80307; 82565; 82962; 84520; 85027; 86593; 86780; 87635